=== PATIENT | female | born 1980 ===

== ENCOUNTER 2016-09-05 06:30 | Inpatient (IN) | payer OTHER ==
[2016-09-04 08:43] VITALS: BMI 43.2
[~2016-09-05 06:30] MED LIST: DEXAMETHASONE SOD PHOSPHATE 10 MG/ML 1 ML VIAL IV ONE; HEPARIN SODIUM,PORCINE 5,000 UNIT/ML 1 ML VIAL SQ ONE; HYDROmorphone 1 MG/ML 1 ML SYRINGE IVP PRN; MIDAZOLAM 2 MG/2 ML VIAL IV PRN; ONDANSETRON 4 MG/2 ML VIAL IVP ONE; SCOPOLAMINE 1.5MG/72HR PATCH TRANSDERM ONE
[2016-09-05] MEDS: LACTATED RINGERS 1,000 ML IV SCH (06:55)
[2016-09-05] MEDS ORDERED: LIDOCAINE 1% 20 ML VIAL (10MG/ML) FOR IV START INTRADERMA ONE (06:55)
[2016-09-05 07:25] LABS: Glucose,Whole Blood 88 mg/dL (75-99)
--- NOTE | 2016-09-05 07:45 | P.GSHP ---
History of Present Illness H&P Date: 09/05/16 Chief Complaint: GERD This is a 35-year-old female referred from Dr. Phipps.The patient has had long- standing problems with reflux esophagitis. The patient underwent recent EGD is found have evidence of esophagitis. Patient has been well informed on the procedure of laparoscopic Lucy fundoplication. The patient is aware the risk of the conversion to the open procedure, risk of injury to the stomach, liver and spleen. The patient is also a risk of recurrent GERD and dysphagia symptoms. The patient understands there is a postoperative diet of full liquids for 2 weeks after surgery. - Constitutional Constitutional: Reports as per HPI Past Medical History Past Medical History: GERD/Reflux Additional Past Medical History / Comment(s): HIATAL HERNIA, HYPOGLYCEMIA. History of Any Multi-Drug Resistant Organisms: None Reported Past Surgical History: Section Additional Past Surgical History / Comment(s): LIPOMA REMOVED LUQ (08/13/16) Past Anesthesia/Blood Transfusion Reactions: Postoperative Nausea & Vomiting ( PONV) Past Psychological History: Depression Additional Psychological History / Comment(s): Hx Depression Smoking Status: Current some day smoker Past Alcohol Use History: Occasional Additional Past Alcohol Use History / Comment(s): Smokes 2 cigs on some days, started in 2005. Past Drug Use History: None Reported - Past Family History Mother Family Medical History: No Reported History Medications and Allergies Home Medications Medication Instructions Recorded Confirmed Type Norgestimate-Ethinyl Estradiol 1 each PO DAILY 08/04/16 09/05/16 History [Mononessa 28 Tablet] Allergies Allergy/AdvReac Type Severity Reaction Status Date / Time No Known Allergies Allergy Verified 09/05/16 07:02 Surgical - Exam Vital Signs Temp Pulse Resp BP Pulse Ox 98.7 F 74 16 146/77 96 09/05/16 07:11 09/05/16 07:11 09/05/16 07:11 09/05/16 07:11 09/05/16 07:11 - General well developed, no distress - Eyes PERRL - ENT normal pinna, normal nares - Neck no masses - Respiratory normal expansion - Cardiovascular Rhythm: regular - Abdomen Abdomen: soft, non tender Assessment and Plan Plan: GERD. We'll perform laparoscopic Lucy fundoplication.
[2016-09-05] MEDS ORDERED: GLYCOPYRROLATE 0.2 MG/ML 2 ML VIAL ONE (07:46)
[2016-09-05] MEDS ORDERED: LIDOCAINE 1% INJ 10MG/ML (20 ML MDV) ONE (07:46)
[2016-09-05] MEDS ORDERED: SUCCINYLCHOLINE CHLORIDE 100 MG/5 ML SYR IV ONE (07:46)
[2016-09-05] MEDS ORDERED: VECURONIUM 10 MG VIAL IV ONE (07:46)
[2016-09-05] MEDS ORDERED: HYDROmorphone (PF) 1 MG/ML ONE (07:46)
[2016-09-05] MEDS ORDERED: LABETALOL 5 MG/ML VIAL MDV ONE (07:46)
[2016-09-05] MEDS ORDERED: KETOROLAC 30 MG/ML 1 ML VIAL ONE (07:46)
[2016-09-05] MEDS ORDERED: MIDAZOLAM 2 MG/2 ML VIAL ONE (07:46)
[2016-09-05] MEDS ORDERED: PROPOFOL 10 MG/ML 20 ML VIAL IV ONE (07:46)
[2016-09-05] MEDS: ceFAZolin 3 GM in SODIUM CHLORIDE 0.9% 100 ML IVPB ONE ×2 (07:46→10:55)
[2016-09-05] MEDS ORDERED: NEOSTIGMINE 1 MG/ML 10 ML VIAL ONE (07:46)
[2016-09-05] MEDS ORDERED: ceFAZolin 1,000 MG VIAL ONE (07:46)
[2016-09-05] MEDS ORDERED: fentaNYL (PF) 50 MCG/ML 2 ML AMP ONE (07:46)
[2016-09-05] MEDS ORDERED: SODIUM CHLORIDE 0.9% 100 ML BAG ONE (07:46)
[2016-09-05] MEDS ORDERED: BUPIVACAIN-EPI 0.25%-1:200,000 30 ML VIAL SQ ONE (08:16)
[2016-09-05] MEDS: LACTATED RINGERS 1,000 ML IV ONE ×2 (08:47→19:14)
--- NOTE | 2016-09-05 08:52 | P.OP ---
Date of Procedure: 09/05/16 Preoperative Diagnosis: GERD Postoperative Diagnosis: GERD Procedure(s) Performed: Laparoscopic Lucy fundal plication Anesthesia: NATY Surgeon: Trevor Fields Estimated Blood Loss (ml): 5 Pathology: none sent Condition: stable Disposition: PACU Description of Procedure: he was placed on the operating table in the supine position. The patient received general anesthesia. And was placed in dorsal lithotomy position. The patient was prepped and draped in the usual sterile fashion. The skin incision sites were anesthetized with 1% local Xylocaine. The skin was incised in the left periumbilical area and then using a blade less 5 mm trocar under direct visualization panel cavity was entered. After adequate insufflation the laparoscope was then placed into the peritoneal cavity. Next a 5 mm trochars placed in the right epigastric position. Another 5 millimeter trocar the right lateral position. Another 5 millimeter trocar in the left lateral position a 5 mm trocar is placed in the left epigastric position. And then the initial 5 mm trocar was exchanged for a 10 mm trocar. The left lateral lobe liver was retracted. The hernia was seen. The crural defect was then dissected using the Harmonic scissors device. A 360 crural dissection was performed the esophagus stomach was reduced back into the peritoneal Cavity. The crural defect was then closed using 2-0 Ethibond suture. Next the fundus of the stomach was mobilized using the [place] scissors device. and then a 58-Citizen [place] bougie dilator was placed oropharynx passed into the esophagus and stomach the fundal plication wrap was then performed by grasping the fundus posteriorly and bringing it around the esophagus and stomach fundoplication was then performed using 2-0 Ethibond suture. Care was taken that the fundal location rested over top of the intra-abdominal esophagus. There was no injury seen to the stomach or esophagus. The dilator was then withdrawn. The abdomen was irrigated there is no bleeding seen. The trochars were then withdrawn and then skin incision sites were closed using 3-0 Monocryl suture Steri-Strips are applied. Patient thought procedure well and sent to recovery room in stable condition.
[2016-09-05] MEDS ORDERED: NALOXONE 0.4 MG/ML 1 ML VIAL IV PRN (08:53)
[2016-09-05] MEDS ORDERED: LACTATED RINGERS 1,000 ML IV ONE (08:53)
[2016-09-05] MEDS ORDERED: METOCLOPRAMIDE 5 MG/ML 2 ML VIAL IVP PRN (08:53)
[2016-09-05] MEDS ORDERED: HYDROcodone/APAP 5-325MG 1 EACH TAB PO PRN (08:53)
[2016-09-05] MEDS ORDERED: HYDROmorphone 1 MG/ML 1 ML SYRINGE IVP PRN (08:53)
[2016-09-05] MEDS ORDERED: ONDANSETRON 4 MG/2 ML VIAL IVP PRN (08:53)
[2016-09-05] MEDS: KETOROLAC 30 MG/ML 1 ML VIAL IVP SCH ×3 (10:54→21:04)
[2016-09-05] MEDS ORDERED: NORGESTIMATE ETHINYL ESTRADIOL PO SCH (13:15)
--- NOTE | 2016-09-05 13:17 | P.CONS ---
History of Present Illness - Reason for Consult Consult date: 09/05/16 Medical management Requesting physician: Trevor Fields - Chief Complaint Status post Robert fundoplication - History of Present Illness This is a 35-year-old -[place] female, patient of Dr. Phipps. She has a history of GERD and hiatal hernia. Also recently had a lipoma removed from her left upper quadrant. Patient underwent a laparoscopic Robert fundoplication today for her GERD. She she tolerated surgery well. Postop she did have elevated blood pressures and was given 2 doses of labetolol. Blood pressure was in the 170s over 100s. Blood pressure is currently 162/48. Heart rate had been in the 50s. Patient reports no heat history of hypertension. She does report a mother and grandmother who had high blood pressure. Patient is sitting up in bed comfortably. Denies any pain. Denies any chest pain or shortness of breath. Denies any nausea or vomiting. Prior to surgery she had been having regular bowel movements and denies any difficulty urinating. Review of Systems Please refer to HPI otherwise unremarkable Past Medical History Past Medical History: GERD/Reflux Additional Past Medical History / Comment(s): HIATAL HERNIA, HYPOGLYCEMIA. History of Any Multi-Drug Resistant Organisms: None Reported Past Surgical History: Section Additional Past Surgical History / Comment(s): LIPOMA REMOVED LUQ (08/13/16) Past Anesthesia/Blood Transfusion Reactions: Postoperative Nausea & Vomiting ( PONV) Past Psychological History: Depression Additional Psychological History / Comment(s): Hx Depression Smoking Status: Current some day smoker Past Alcohol Use History: Occasional Additional Past Alcohol Use History / Comment(s): Smokes 2 cigs on some days, started in 2005. Past Drug Use History: None Reported - Past Family History Mother Family Medical History: No Reported History Medications and Allergies Home Medications Medication Instructions Recorded Confirmed Type Norgestimate-Ethinyl Estradiol 1 tab PO DAILY 08/04/16 09/05/16 History [Mononessa 28 Tablet] Allergies Allergy/AdvReac Type Severity Reaction Status Date / Time No Known Allergies Allergy Verified 09/05/16 07:02 Physical Exam Vitals: Vital Signs Temp Pulse Resp BP Pulse Ox 09/05/16 11:16 57 L 162/85 100 09/05/16 10:46 60 157/88 99 09/05/16 10:31 57 L 144/76 99 09/05/16 10:16 60 141/86 91 L 09/05/16 10:02 97.6 F 59 L 16 154/89 90 L 09/05/16 09:35 54 L 16 155/86 99 09/05/16 09:26 59 L 18 162/73 92 L 09/05/16 09:12 56 L 16 159/76 100 09/05/16 08:58 97.6 F 74 20 185/88 96 09/05/16 07:11 98.7 F 74 16 146/77 96 Intake and Output 09/04/16 09/05/16 09/05/16 22:59 06:59 14:59 Intake Total 100 1130 Output Total 402 Balance 100 728 Intake: IV 100 1100 Oral 30 Output: Urine 400 Estimated Blood Loss 2 Other: # Voids 1 Weight 128.82 kg Patient Weight 09/06/16 06:59 Weight 128.82 kg Head normocephalic Neck supple Lungs clear to auscultation bilaterally no wheezing or crackles Heart regular rate and rhythm S1-S2, no rub or gallop Abdomen is soft incision sites clean dry and intact Extremities no edema Neuro alert and orientated to 3 Assessment and Plan Plan: 1. GERD: Status post laparoscopic orbert fundoplication. Patient currently on a clear liquid diet. Pain controlled. 2. Accelerated hypertension postop. Patient did require labetalol 2. We'll monitor blood pressure closely. Patient reports no history of hypertension. 3. Nicotine dependence. Patient is working on quitting smoking. She is down to 2 cigarettes a day. We'll add nicotine patch. DVT prophylaxis subcu heparin Check CBC and CMP Thank you for this consultation. We will continue to follow along with you. Time with Patient: Greater than 30 (Greater than 50% of the total time spent in counseling and coordination of care.I performed an examination of the patient and discussed their management with the physician High School Tutor. I have reviewed the Physician High School Tutor's notes and agree with the documented findings and plan of care)
[2016-09-05] MEDS: NICOTINE 7MG/24HR PATCH TRANSDERM SCH (14:03)
[2016-09-05 14:32] LABS: Basophils % (A) 0 %; CH 30.8; CHCM 33.2; Eosinophils # (A) 0.1 k/uL (0-0.7); Eosinophils % (A) 1 %; HDW 2.32; HGB 12.7 gm/dL (11.4-16.0); Luc # (Auto) 0.03; Luc % (Auto) 0; Lymphocytes % (A) 12 %; MCH 29.7 pg (25.0-35.0); MCHC 31.8 g/dL (31.0-37.0); MCV 93.3 fL (80.0-100.0); Mean Platelet Volume 7.4; Monocytes # (A) 0.1 k/uL (0-1.0); Monocytes % (A) 1 %; Neutrophils # (A) 6.9 k/uL (1.3-7.7); Neutrophils % (A) 85 %; RBC 4.29 m/uL (3.80-5.40); RDW 13.5 % (11.5-15.5); WBC 8.1 k/uL (3.8-10.6); WBC (Perox) 8.57
[2016-09-05 14:44] LABS: ALT 42 U/L (9-52); AST 32 U/L (14-36); Alkaline Phosphatase 95 U/L (38-126); Anion Gap 9 mmol/L; Blood Urea Nitrogen 8 mg/dL (7-17); Calcium 9.1 mg/dL (8.4-10.2); Carbon Dioxide 25 mmol/L (22-30); Chloride 106 mmol/L (98-107); Glucose 154 mg/dL (74-99); Non-African American GFR(MDRD) >60 (>60 ml/min/1.73 sqM); Potassium 3.8 mmol/L (3.5-5.1); Sodium 140 mmol/L (137-145); Total Bilirubin 0.4 mg/dL (0.2-1.3); Total Protein 7.1 g/dL (6.3-8.2)
--- NOTE | 2016-09-05 15:32 | FL ---
EXAMINATION TYPE: FL UGI w esophagus DATE OF EXAM: 09/05/2016 3:07 PM LIMITED UGI-ESOPHAGRAM: CLINICAL HISTORY: History of epigastric pain, hiatal hernia, and reflux-like symptoms with Keegan fu ndoplication surgery earlier today TECHNIQUE: Limited esophagram is performed utilizing 50 oz of Omnipaque 350. A total of 1 minute 27 seconds of fluoroscopic time was utilized during procedure. FINDINGS: The patient swallowed contrast without difficulty or delay. Esophageal peristalsis and mo tility are within normal limits. There is some mild delay in flow of contrast along the diaphragmatic hiatus into the stomach, there is no evidence of contrast extravasation to suggest free leak. Along posterior margin of proximal stomach there is abnormal outpouching present could reflect small divert iculum, contained perforation felt much less likely. No persistent hiatal hernia is seen. Patient rem ains asymptomatic without increased symptoms of nausea or vomiting. IMPRESSION: No evidence of free leak or significant obstruction status post Keegan fundoplication jesus keira earlier today.
[2016-09-05] MEDS: HEPARIN SODIUM,PORCINE 5,000 UNIT/ML 1 ML VIAL SQ SCH (21:06)
[2016-09-06] MEDS: LACTATED RINGERS 1,000 ML IV SCH (02:16)
[2016-09-06] MEDS: KETOROLAC 30 MG/ML 1 ML VIAL IVP SCH ×2 (04:18→09:47)
[2016-09-06 06:53] LABS: Basophils % (A) 0 %; CH 30.9; CHCM 33.3; Eosinophils # (A) 0.3 k/uL (0-0.7); Eosinophils % (A) 3 %; HCT 35.8 % (34.0-46.0); HDW 2.33; HGB 11.5 gm/dL (11.4-16.0); Luc # (Auto) 0.15; Luc % (Auto) 2; Lymphocytes % (A) 40 %; MCH 29.9 pg (25.0-35.0); MCHC 32.1 g/dL (31.0-37.0); MCV 93.1 fL (80.0-100.0); Mean Platelet Volume 7.6; Monocytes # (A) 0.3 k/uL (0-1.0); Monocytes % (A) 4 %; Neutrophils # (A) 3.8 k/uL (1.3-7.7); Neutrophils % (A) 51 %; RBC 3.85 m/uL (3.80-5.40); RDW 13.6 % (11.5-15.5); WBC 7.6 k/uL (3.8-10.6); WBC (Perox) 8.01
[2016-09-06 07:08] LABS: ALT 38 U/L (9-52); AST 23 U/L (14-36); Alkaline Phosphatase 81 U/L (38-126); Anion Gap 6 mmol/L; Blood Urea Nitrogen 7 mg/dL (7-17); Calcium 8.8 mg/dL (8.4-10.2); Carbon Dioxide 25 mmol/L (22-30); Chloride 108 mmol/L (98-107); Glucose 96 mg/dL (74-99); Non-African American GFR(MDRD) >60 (>60 ml/min/1.73 sqM); Potassium 3.4 mmol/L (3.5-5.1); Sodium 139 mmol/L (137-145); Total Bilirubin 0.5 mg/dL (0.2-1.3); Total Protein 5.9 g/dL (6.3-8.2)
[2016-09-06 09:40] VITALS: BP 142/85; PULSE 92; RESP 20; TEMP 98.2
[2016-09-06] MEDS: HEPARIN SODIUM,PORCINE 5,000 UNIT/ML 1 ML VIAL SQ SCH (09:48)
[2016-09-06] MEDS: NICOTINE 7MG/24HR PATCH TRANSDERM SCH (09:48)
--- NOTE | 2016-09-06 12:09 | P.DS ---
Providers Date of admission: 09/05/16 06:30 Expected date of discharge: 09/06/16 Attending physician: Trevor Fields Consults: 09/05/16 08:58 Consult Physician Routine Consulting Provider: Angie Delvalle Consult Reason/Comments: Medical management Do you want consulting provider notified?: Yes Primary care physician: [facility] Course: Patient underwent elective laparoscopic Lucy fundoplication yesterday. She is doing well today. She is tolerating her liquid diet. Her upper GI was normal. Her white blood cell count is normal. She is afebrile. She would like home today. She is not taking anything for pain. Incisions are nicely. She'll be discharged today with outpatient follow-up with Dr. Fields in 1 week. Plan - Discharge Summary Discharge Medication List Norgestimate-Ethinyl Estradiol [Mononessa 28 Tablet] 1 tab PO DAILY 08/04/16 [ History] Follow up Appointment(s)/Referral(s): Trevor Fields MD [STAFF PHYSICIAN] - 1 Week
--- NOTE | 2016-09-06 13:22 | P.PN ---
Subjective Patient is doing well today. She continues to have elevated blood pressure throughout this hospital stay. She does not have any complaints. Objective - Vital Signs Vital signs: Vital Signs Temp 98.2 F 09/06/16 08:45 Pulse 92 09/06/16 08:45 Resp 20 09/06/16 08:45 BP 142/85 09/06/16 08:45 Pulse Ox 100 09/06/16 08:45 Intake & Output 09/05/16 09/06/16 09/06/16 18:59 06:59 18:59 Intake Total 1930 700 200 Output Total 702 Balance 1228 700 200 Weight 128.82 kg Intake: IV 1100 Oral 830 700 200 Output: Urine 700 Estimated Blood Loss 2 Other: Voiding Method Toilet # Voids 1 1 - Exam General: The patient is awake and alert, in no distress Eye: there is normal conjunctiva bilaterally. Neck: The neck is supple, there is no JVD. Cardiovascular: Normal S1-S2, no S3-S4, no murmurs. Respiratory: Lungs clear to auscultation bilaterally Gastrointestinal: Abdomen is soft, nontender Musculoskeletal: There is no pedal edema. Neurological:. Speech is normal. Skin: Skin is warm and dry - Labs CBC & Chem 7: 09/06/16 06:42 09/06/16 06:42 Labs: Abnormal Lab Results - Last 24 Hours (Table) 09/05/16 09/06/16 Range/Units 14:23 06:42 Potassium 3.4 L (3.5-5.1) mmol/L Chloride 108 H (98-107) mmol/L Glucose 154 H (74-99) mg/dL Total Protein 5.9 L (6.3-8.2) g/dL Albumin 3.2 L (3.5-5.0) g/dL Assessment and Plan Plan: 1. GERD: Status post laparoscopic robert fundoplication. Cleared for discharge home 2. Hypertension: Apparently new diagnosed with this patient. We will start her on low-dose amlodipine once daily. Follow up with primary care physician next week. 3. Nicotine dependence. Counseled to quit during this admission
== END 2016-09-06 13:48 | disposition home or self-care (01) | DRG 328 ==
LOC: 2ORWHC 06:30 → 6PED 08:55
PROVIDERS: ADMIT Surgery; ATTEND Surgery
PROC: 0DV44ZZ Restriction of Esophagogastric Junction, Percutaneous Endoscopic Approach (ICD-10-PCS; principal; 2016-09-05 07:40)
DX: K21.0 Gastro-esophageal reflux disease with esophagitis (principal); I10 Essential (primary) hypertension; K44.9 Diaphragmatic hernia without obstruction or gangrene; F32.9 Major depressive disorder, single episode, unspecified; F17.210 Nicotine dependence, cigarettes, uncomplicated; Z79.3 Long term (current) use of hormonal contraceptives; Z82.49 Family history of ischemic heart disease and other diseases of the circulatory system; Z71.6 Tobacco abuse counseling; Z86.59 Personal history of other mental and behavioral disorders; Z86.39 Personal history of other endocrine, nutritional and metabolic disease
CPT/HCPCS: 74240; 80053; 81025; 85025

== ENCOUNTER → 2017-09-28 | Outpatient (CLI) | payer OTHER ==
--- NOTE | 2017-09-28 11:26 | NM ---
EXAMINATION TYPE: NM hepatobiliary w CCK DATE OF EXAM: 09/28/2017 COMPARISON: NONE HISTORY: Gastroesophageal reflux disease, right upper quadrant pain TECHNIQUE: After the intravenous administration of 5.35 mCi Tc 99m Mebrofenin hepatobiliary scintigra phy is performed. Immediate images post injection. FINDINGS: There is satisfactory initial accumulation of tracer by the liver. The gallbladder is visualized wit hin 10 minutes. The small bowel activity is noted within 34 minutes. At one hour CCK was administer ed, patient was injected with 2.7 mcg of Kinevac, and gallbladder ejection fraction is calculated at 5 %. IMPRESSION: Abnormal low gallbladder ejection fraction
== END | disposition home or self-care (01) ==
LOC: RADNMMAIN 07:23
PROVIDERS: ATTEND Surgery
DX: K82.8 Other specified diseases of gallbladder (principal); K21.9 Gastro-esophageal reflux disease without esophagitis; R10.11 Right upper quadrant pain
CPT/HCPCS: 78227; A9537; J2805

== ENCOUNTER → 2017-10-01 | Outpatient (CLI) | payer OTHER ==
--- NOTE | 2017-10-01 07:57 | US ---
EXAMINATION TYPE: US gallbladder DATE OF EXAM: 10/01/2017 COMPARISON: nuclear med 2018 CLINICAL HISTORY: K21.9 GERD, R10.11 Right upper quad pain. EXAM MEASUREMENTS: Liver Length: 18.6 cm Gallbladder Wall: 0.2 cm CBD: 0.3 cm Right Kidney: 11.0 x 4.2 x 5.2 cm Pancreas: wnl Liver: Liver Length: < 16cm wnl, 17-18cm upper limits, >18cm enlarged, upper limits Gallbladder: gravity dependent gallstones Evidence for sonographic Suarez's sign: No CBD: wnl Right Kidney: upper pole anechoic cyst 4.4 x 3.5 x 3.3 cm IMPRESSION: 1. Cholelithiasis without sonographic evidence of acute cholecystitis. Biliary dyskinesia was identif ied on the recent hepatobiliary nuclear medicine examination dated 09/28/2017. 2. Mild hepatomegaly. 3. Right upper pole 4.4 cm renal cyst.
== END | disposition home or self-care (01) ==
LOC: RADUSWWP 07:18
PROVIDERS: ATTEND Surgery
DX: K80.20 Calculus of gallbladder without cholecystitis without obstruction (principal); N28.1 Cyst of kidney, acquired; K21.9 Gastro-esophageal reflux disease without esophagitis; R16.0 Hepatomegaly, not elsewhere classified
CPT/HCPCS: 76705

== ENCOUNTER 2017-10-07 07:57 | Day surgery (SDC) | payer OTHER ==
[2017-10-01 16:18] VITALS: BMI 42.3
[~2017-10-07 07:57] MED LIST changes: -DEXAMETHASONE SOD PHOSPHATE 10 MG/ML 1 ML VIAL IV ONE; -HEPARIN SODIUM,PORCINE 5,000 UNIT/ML 1 ML VIAL SQ ONE; -HYDROmorphone 1 MG/ML 1 ML SYRINGE IVP PRN; +LACTATED RINGERS 1,000 ML IV SCH; +LIDOCAINE 1% 20 ML VIAL (10MG/ML) FOR IV START INTRADERMA PRN; -MIDAZOLAM 2 MG/2 ML VIAL IV PRN; -ONDANSETRON 4 MG/2 ML VIAL IVP ONE; -SCOPOLAMINE 1.5MG/72HR PATCH TRANSDERM ONE
[2017-10-07 08:27] VITALS: TEMP 97.5
[2017-10-07] MEDS ORDERED: GLYCOPYRROLATE 0.2 MG/ML 2 ML VIAL ONE (08:56)
[2017-10-07] MEDS ORDERED: LIDOCAINE 1% INJ 10MG/ML (20 ML MDV) ONE (08:56)
[2017-10-07] MEDS ORDERED: fentaNYL (PF) 50 MCG/ML 2 ML AMP ONE (08:56)
[2017-10-07] MEDS ORDERED: PROPOFOL 10 MG/ML 20 ML VIAL IV ONE (08:56)
--- NOTE | 2017-10-07 09:04 | P.GSHP ---
History of Present Illness H&P Date: 10/07/17 Chief Complaint: Right upper quadrant, epigastric pain This is a 37-year-old female referred from Dr. Uriel Singer. Patient presents today for EGD. Stay complaints of epigastric and right upper quadrant pain. The patient had a recent ultrasound HIDA scan which showed evidence of cholelithiasis and biliary dysfunction. She will stay for EGD for evaluation possible gastritis Past Medical History Past Medical History: GERD/Reflux Additional Past Medical History / Comment(s): HIATAL HERNIA, HYPOGLYCEMIA, currently has strep throat-getting antibiotic today, was having epigastric pain History of Any Multi-Drug Resistant Organisms: None Reported Past Surgical History: Section Additional Past Surgical History / Comment(s): LIPOMA REMOVED LUQ (08/13/16), robert fundoplasty Past Anesthesia/Blood Transfusion Reactions: No Reported Reaction Past Psychological History: Depression Additional Psychological History / Comment(s): Hx Depression Smoking Status: Current some day smoker Past Alcohol Use History: Occasional Additional Past Alcohol Use History / Comment(s): Smokes 2 cigs on some days, started in 2005. Past Drug Use History: None Reported - Past Family History Mother Family Medical History: No Reported History Medications and Allergies Home Medications Medication Instructions Recorded Confirmed Type Norgestimate-Ethinyl Estradiol 1 tab PO DAILY 08/04/16 10/01/17 History [Mononessa 28 Tablet] Antibiotic For Strep Throat 1 tab PO DIRECTED 10/01/17 History Allergies Allergy/AdvReac Type Severity Reaction Status Date / Time No Known Allergies Allergy Verified 10/01/17 15:02 Surgical - Exam Vital Signs Temp Pulse Resp BP Pulse Ox 97.5 F L 59 L 20 143/82 96 10/07/17 08:26 10/07/17 08:26 10/07/17 08:26 10/07/17 08:26 10/07/17 08:26 - General well developed - Eyes PERRL - ENT normal pinna - Neck no masses - Respiratory normal expansion - Cardiovascular Rhythm: regular - Abdomen Right upper quadrant. Pain Abdomen: soft Assessment and Plan Plan: Right upper quadrant and epigastric pain. We'll perform EGD.
--- NOTE | 2017-10-07 09:09 | P.OP ---
Date of Procedure: 10/07/17 Preoperative Diagnosis: GERD, right upper quadrant pain Postoperative Diagnosis: Antral gastritis Esophagitis Procedure(s) Performed: EGD Anesthesia: MAC Surgeon: Trevor Fields Pathology: other (Antrum, esophagus) Condition: stable Disposition: PACU Description of Procedure: The patient's placed on the endoscopy table in the lateral position. She received IV sedation. The gastroscope was placed oropharynx and passed into the esophagus and stomach. The scope was then placed through the pylorus. The first and second portion of the duodenum appeared normal. Scope was then brought back the antrum this. Mildly inflamed. A biopsies performed. The scope was unretroflexed. There was no significant hiatal hernia. The patient a previous fundoplication. The fundoplication appeared to be slightly below the GE junction. The distal esophagus appeared inflamed. Several biopsies performed. The proximal esophagus appeared normal. Scope withdrawn for patient.
[2017-10-07 09:12] VITALS: RESP 16
[2017-10-07 09:48] VITALS: BP 167/94; PULSE 61
== END 2017-10-07 09:54 | disposition home or self-care (01) ==
LOC: ORWHC2ENDO 07:57
PROVIDERS: ATTEND Surgery
DX: K29.50 Unspecified chronic gastritis without bleeding (principal); K21.0 Gastro-esophageal reflux disease with esophagitis; F17.210 Nicotine dependence, cigarettes, uncomplicated; Z86.73 Personal history of transient ischemic attack (TIA), and cerebral infarction without residual deficits; Z79.3 Long term (current) use of hormonal contraceptives
CPT/HCPCS: 81025; 88305; 43239; J2001; J3010; J2704

== ENCOUNTER 2017-12-23 09:55 | Day surgery (SDC) | payer OTHER ==
[2017-12-18 11:15] VITALS: BMI 42.5
[~2017-12-23 09:55] MED LIST changes: +DEXAMETHASONE SOD PHOSPHATE 10 MG/ML 1 ML VIAL IV ONE; +HEPARIN SODIUM,PORCINE 5,000 UNIT/ML 1 ML VIAL SQ ONE; +HYDROmorphone 0.5 MG/0.5 ML SYRINGE IVP PRN; -LIDOCAINE 1% 20 ML VIAL (10MG/ML) FOR IV START INTRADERMA PRN; +MIDAZOLAM 2 MG/2 ML VIAL IV PRN; +ONDANSETRON 4 MG/2 ML VIAL IVP ONE; +ONDANSETRON ODT 4 MG TAB PO ONE
[2017-12-23] MEDS ORDERED: LIDOCAINE 1% 20 ML VIAL (10MG/ML) FOR IV START INTRADERMA ONE (10:49)
--- NOTE | 2017-12-23 11:13 | P.GSHP ---
History of Present Illness H&P Date: 12/23/17 Chief Complaint: Right upper quadrant pain This is a 37-year-old female who presents today for laparoscopic cholestatic. Patient's had complaints of right upper quadrant pain. Her recent ultrasounds is evidence of cholelithiasis. Past Medical History Past Medical History: GERD/Reflux Additional Past Medical History / Comment(s): HIATAL HERNIA, HYPOGLYCEMIA. History of Any Multi-Drug Resistant Organisms: None Reported Past Surgical History: Section Additional Past Surgical History / Comment(s): LIPOMA REMOVED LUQ (08/13/16), robert fundiplication 09/16 Past Anesthesia/Blood Transfusion Reactions: No Reported Reaction Smoking Status: Current some day smoker - Past Family History Mother Family Medical History: No Reported History Medications and Allergies Home Medications Medication Instructions Recorded Confirmed Type Norgestimate-Ethinyl Estradiol 1 tab PO DAILY 08/04/16 12/23/17 History [Mononessa 28 Tablet] Omeprazole 40 mg PO DAILY #60 capsule. 10/07/17 12/23/17 Rx Allergies Allergy/AdvReac Type Severity Reaction Status Date / Time No Known Allergies Allergy Verified 12/23/17 10:31 Surgical - Exam Vital Signs Temp Pulse Resp BP 98.3 F 63 16 134/80 12/23/17 10:20 12/23/17 10:20 12/23/17 10:20 12/23/17 10:20 - General well developed, no distress - Eyes PERRL - ENT normal pinna - Neck no masses - Respiratory normal expansion - Cardiovascular Rhythm: regular - Abdomen Abdomen: soft, non tender Assessment and Plan Assessment: Cholelithiasis. We'll perform laparoscopic cholecystectomy.
[2017-12-23] MEDS ORDERED: GLYCOPYRROLATE 0.2 MG/ML 2 ML VIAL ONE (11:27)
[2017-12-23] MEDS ORDERED: ROCURONIUM BROMIDE 10 MG/ML 10 ML VIAL IV ONE (11:27)
[2017-12-23] MEDS ORDERED: LIDOCAINE 1% INJ 10MG/ML (20 ML MDV) ONE (11:27)
[2017-12-23] MEDS ORDERED: BUPIVACAINE (PF) 0.25% 30 ML VIAL SQ ONE (11:27)
[2017-12-23] MEDS ORDERED: MORPHINE SULFATE 10 MG/ML SYRINGE ONE (11:27)
[2017-12-23] MEDS ORDERED: NEOSTIGMINE 1 MG/ML 10 ML VIAL ONE (11:27)
[2017-12-23] MEDS ORDERED: KETOROLAC 30 MG/ML 1 ML VIAL ONE (11:27)
[2017-12-23] MEDS ORDERED: SUCCINYLCHOLINE CHLORIDE 100 MG/5 ML SYR IV ONE (11:27)
[2017-12-23] MEDS ORDERED: fentaNYL (PF) 50 MCG/ML 2 ML AMP ONE (11:27)
[2017-12-23] MEDS ORDERED: PROPOFOL 10 MG/ML 20 ML VIAL IV ONE (11:27)
[2017-12-23] MEDS ORDERED: MIDAZOLAM 2 MG/2 ML VIAL ONE (11:27)
[2017-12-23] MEDS ORDERED: LABETALOL 5 MG/ML VIAL MDV ONE (11:27)
--- NOTE | 2017-12-23 12:10 | P.OP ---
Date of Procedure: 12/23/17 Preoperative Diagnosis: Cholelithiasis Postoperative Diagnosis: Cholelithiasis Procedure(s) Performed: Laparoscopic cholecystectomy Anesthesia: NATY Surgeon: Trevor Fields Estimated Blood Loss (ml): 5 Pathology: other (Gallbladder) Condition: stable Disposition: PACU Description of Procedure: The patient was placed on the operating table. The patient received a general endotracheal tube anesthesia. The patients abdomen was prepped and draped in the usual sterile fashion. Through an infraumbilical stab incision, the fascia of the anterior abdominal wall was grasped with a pair of Kochers and then the Veress needle was placed in the peritoneal cavity. Position of the Veress needle was confirmed with positive drop test. The abdomen was then insufflated. After adequate insufflation, the 10 mm trocar was placed in the peritoneal cavity. Following this the laparoscope was placed in the peritoneal cavity. The patient was placed in the head-up, right side up position and then a 5 mm trocar was placed in the right lateral and right subcostal position under direct visualization. A 8 mm trocar was placed in the epigastric position. The gallbladder was grasped in the fundus and infundibulum. Traction on the gallbladder was placed in the lateral and the cephalad positions. The triangle of Calot was visualized.. The cystic duct was bluntly dissected until the union of the cystic duct and common bile duct was seen. The cystic duct was then divided and sealed with the Harmonic scissors. A PDS Endoloop was then placed throughout the cystic duct stump. The cystic artery divided and sealed with the Harmonic scissors. The gallbladder was then removed from the liver bed using Harmonic scissors. The gallbladder was then extracted through the epigastric port site. Operative field was checked for any bleeding spots and Harmonic scissors was used to coagulate the liver bed. The abdomen was irrigated. The trocars were removed. The skin was closed using interrupted 3-0 Vicryl suture. Dermabond dressing were applied. The patient tolerated the procedure well.
[2017-12-23 12:21] VITALS: TEMP 98
[2017-12-23] MEDS ORDERED: ENALAPRILAT 1.25 MG/ML 1 ML VIAL IV ONE (12:23)
[2017-12-23] MEDS: MORPHINE SULFATE 4 MG/ML SYRINGE IV PRN ×2 (12:41→12:51)
[2017-12-23 14:02] VITALS: RESP 16
[2017-12-23] MEDS ORDERED: HYDROcodone/APAP 7.5-325MG 1 EACH TAB PO ONE (14:07)
[2017-12-23 14:53] VITALS: BP 181/91; PULSE 65
== END 2017-12-23 15:10 | disposition home or self-care (01) ==
LOC: OR 09:55
PROVIDERS: ATTEND Surgery
DX: K80.10 Calculus of gallbladder with chronic cholecystitis without obstruction (principal); K21.9 Gastro-esophageal reflux disease without esophagitis; F17.210 Nicotine dependence, cigarettes, uncomplicated; Z79.3 Long term (current) use of hormonal contraceptives; Z79.899 Other long term (current) drug therapy; Z87.19 Personal history of other diseases of the digestive system
CPT/HCPCS: 47562; 81025; 88304; 84703; J2250; J2270 ×2; J1644; J1100; J2710; J0690; J2405; J2001; J3010; J1885; J0330; J2704

== ENCOUNTER 2018-12-20 08:23 | Emergency (ER) | payer OTHER ==
[2018-12-20] MEDS ORDERED: Rhogam IMMUNE GLOBULIN 1,500 UNIT/1 ML IM ONE (08:51)
--- NOTE | 2018-12-20 08:53 | ED ---
Female Urogenital HPI - General Chief complaint: Vaginal Bleeding Stated complaint: 9 wks /bleeding Time Seen by Provider: 12/20/18 08:37 Source: family, RN notes reviewed Mode of arrival: ambulatory Limitations: no limitations - History of Present Illness Initial comments: 38-year-old female presents emergency Department with chief complaint of mild abdominal cramping and bleeding early . Patient is A1. Patient states that she has not seen SPIRITUAL ADVISOR at this time she believes she is currently 9 weeks . Patient states the bleeding started this morning. Patient is Rh- and has received RhoGAM in the past but nothing recent. Patient denies any dysuria or hematuria no constipation or diarrhea. - Related Data Home Medications Medication Instructions Recorded Confirmed Norgestimate-Ethinyl Estradiol 1 tab PO DAILY 08/04/16 12/20/18 [Mononessa 28 Tablet] Cephalexin [Keflex] 500 mg PO Q12HR 12/20/18 12/20/18 Allergies Allergy/AdvReac Type Severity Reaction Status Date / Time No Known Allergies Allergy Verified 12/20/18 08:48 Review of Systems ROS Statement: Those systems with pertinent positive or pertinent negative responses have been documented in the HPI. ROS Other: All systems not noted in ROS Statement are negative. Past Medical History Past Medical History: GERD/Reflux Additional Past Medical History / Comment(s): HIATAL HERNIA, HYPOGLYCEMIA. History of Any Multi-Drug Resistant Organisms: None Reported Past Surgical History: Section, Cholecystectomy Additional Past Surgical History / Comment(s): LIPOMA REMOVED LUQ (08/13/16), robert fundiplication 09/16 Past Anesthesia/Blood Transfusion Reactions: No Reported Reaction Past Psychological History: Depression Smoking Status: Former smoker Past Alcohol Use History: Occasional Past Drug Use History: None Reported - Past Family History Mother Family Medical History: No Reported History General Exam Limitations: no limitations General appearance: alert, in no apparent distress Head exam: Present: atraumatic, normocephalic, normal inspection Respiratory exam: Present: normal lung sounds bilaterally. Absent: respiratory distress, wheezes, rales, rhonchi, stridor Cardiovascular Exam: Present: regular rate, normal rhythm, normal heart sounds. Absent: systolic murmur, diastolic murmur, rubs, gallop, clicks GI/Abdominal exam: Present: soft, normal bowel sounds. Absent: distended, tenderness, guarding, rebound, rigid Back exam: Absent: CVA tenderness (R), CVA tenderness (L) Skin exam: Present: warm, dry, intact, normal color. Absent: rash Course Vital Signs 12/20/18 08:26 Temperature 97.8 F Pulse Rate 65 Respiratory 18 Rate Blood Pressure 146/86 O2 Sat by Pulse 100 Oximetry Medical Decision Making - Medical Decision Making 30-year-old female presented for bleeding in early . Ultrasound shows 5 weeks and 4 days no heart rate this time though it's very early. Patient's hCG is 2134. Patient will follow-up for repeat hCG in 2 days. I did explain that concern for possible miscarriage. Patient will follow with SPIRITUAL ADVISOR. - Lab Data Result diagrams: 12/20/18 09:00 Lab Results 12/20/18 12/20/18 12/20/18 Range/Units 09:00 09:00 09:00 Sodium 138 (137-145) mmol/L Potassium 4.4 (3.5-5.1) mmol/L Chloride 105 (98-107) mmol/L Carbon Dioxide 26 (22-30) mmol/L Anion Gap 7 mmol/L BUN 9 (7-17) mg/dL Creatinine 0.51 L (0.52-1.04) mg/dL Est GFR (CKD-EPI)AfAm >90 (>60 ml/min/1.73 sqM) Est GFR (CKD-EPI)NonAf >90 (>60 ml/min/1.73 sqM) Glucose 91 (74-99) mg/dL Calcium 9.0 (8.4-10.2) mg/dL HCG, Quant 2134.8 mIU/mL Urine Color Yellow Urine Appearance Clear (Clear) Urine pH 7.0 (5.0-8.0) Ur Specific [place] 1.025 (1.001-1.035) Urine Protein Trace H (Negative) Urine Glucose (UA) Negative (Negative) Urine Ketones Negative (Negative) Urine Blood Moderate H (Negative) Urine Nitrite Negative (Negative) Urine Bilirubin Negative (Negative) Urine Urobilinogen <2.0 (<2.0) mg/dL Ur Leukocyte Esterase Negative (Negative) Urine RBC 3 (0-5) /hpf Urine WBC 1 (0-5) /hpf Ur Squamous Epith Cells 2 (0-4) /hpf Urine Mucus Rare H (None) /hpf Urine Sperm Rare (None) /hpf Blood Type A Negative Blood Type Recheck No Antibody Screen NEGATIVE Disposition Clinical Impression: Threatened miscarriage in early Disposition: HOME SELF-CARE Condition: Stable Instructions (If sedation given, give patient instructions): Threatened Miscarriage (ED) Additional Instructions: Please return to the Emergency Department if symptoms worsen or any other concerns. Is patient prescribed a controlled substance at d/c from ED?: No Referrals: Wandy Valiente MD [Primary Care Provider] - 1-2 days Time of Disposition: 11:25
[2018-12-20 09:35] LABS: Appearance,Urine Clear (Clear); Bilirubin,Urine Negative (Negative); Blood,Urine Moderate (Negative); Color,Urine Yellow; Glucose,Urine (UA) Negative (Negative); Ketones,Urine Negative (Negative); Leukocyte Esterase,Urine Negative (Negative); Mucus,Urine Rare /hpf; Nitrite,Urine Negative (Negative); Protein,Urine Trace (Negative); RBC,Urine 3 /hpf (0-5); Specific Gravity,Urine 1.025 (1.001-1.035); Sperm,Urine Rare /hpf; Squamous Epithelial Cell,Urine 2 /hpf (0-4); Urobilinogen,Urine <2.0 mg/dL (<2.0)
[2018-12-20 09:40] LABS: Anion Gap 7 mmol/L; Blood Urea Nitrogen 9 mg/dL (7-17); Carbon Dioxide 26 mmol/L (22-30); Chloride 105 mmol/L (98-107); Glucose 91 mg/dL (74-99); Potassium 4.4 mmol/L (3.5-5.1); Sodium 138 mmol/L (137-145)
[2018-12-20 09:57] LABS: HCG,Quantitative Serum 2134.8 mIU/mL
--- NOTE | 2018-12-20 10:22 | US ---
EXAMINATION TYPE: Transabdominal DATE OF EXAM: 12/20/2018 10:13 AM COMPARISON: NONE CLINICAL HISTORY: Pain. spotting today, patient was sexually active, no pain, A1, h/o EXAM PERFORMED: OBTA EXAM MEASUREMENTS: GESTATIONAL AGE / DATING Physician Established: Not yet established Dates by LMP: (9 weeks/4 days) EDC: 07/21/2019 Dates by First Scan: No previous this is first scan Dates by Current Scan for: (5 weeks/4 days) EDC: 08/18/2019 MATERNAL ANATOMY Uterus: 8.2 x 6.0 x 4.8cm Right Ovary: 2.8 x 1.9 x 1.7cm Left Ovary: 1.7 x 1.6 x 1.4cm Post CDS / Adnexa: wnl Presence of free fluid: no Presence of corpus luteal cyst: not seen Presence of subchorionic bleed: no GESTATION / SURVEY MSD: 1.4 (5 weeks/4 days) Yolk Sac (normal less than 6mm): not seen yet Date of LMP: 10/14/2018 Beta HcG (if available): 2134 IMPRESSION: 1. Single intrauterine gestational sac estimated at 5 weeks 4 days gestation based on the mean sac di ameter. Yolk sac is not identified. pole is not identified. Typically a pole is identifie d at the current hCG level. Early should be considered. Other etiologies are not excluded a t this time. No cardiac activity is evident. Correlation with serial beta-hCG and follow-up is recomm ended.
[2018-12-20 11:28] LABS: Basophils # (A) 0.1 k/uL (0-0.2); Basophils % (A) 1 %; Eosinophils # (A) 0.1 k/uL (0-0.7); Eosinophils % (A) 2 %; HCT 36.7 % (34.0-46.0); HGB 12.2 gm/dL (11.4-16.0); Lymphocytes # (A) 3.1 k/uL (1.0-4.8); Lymphocytes % (A) 47 %; MCH 30.6 pg (25.0-35.0); MCHC 33.4 g/dL (31.0-37.0); MCV 91.8 fL (80.0-100.0); Mean Platelet Volume 6.5; Monocytes # (A) 0.3 k/uL (0-1.0); Monocytes % (A) 4 %; Neutrophils # (A) 2.9 k/uL (1.3-7.7); Neutrophils % (A) 44 %; Platelet Count 349 k/uL (150-450); RDW 13.8 % (11.5-15.5); WBC 6.7 k/uL (3.8-10.6)
[2018-12-20 12:45] VITALS: BP 138/98; PULSE 60; RESP 16; TEMP 98.2
== END 2018-12-20 12:30 | disposition home or self-care (01) ==
LOC: EC 08:23
DX: O20.0 Threatened abortion (principal); O26.891 Other specified pregnancy related conditions, first trimester; R10.9 Unspecified abdominal pain; Z87.891 Personal history of nicotine dependence; Z3A.01 Less than 8 weeks gestation of pregnancy; Z79.3 Long term (current) use of hormonal contraceptives
CPT/HCPCS: 36415; 86900; 86901; 80048; 85025; 86850; 81001; 84702; 76801; 99284; 96372; J2791

== ENCOUNTER → 2018-12-25 | Outpatient (CLI) | payer OTHER | END | disposition home or self-care (01) | LOC: LABWHC1 10:08 | PROVIDERS: ATTEND Obstetrics & Gynecology | DX: O20.0 Threatened abortion (principal); Z3A.00 Weeks of gestation of pregnancy not specified | CPT/HCPCS: 36415; 84702 ==

== ENCOUNTER → 2019-01-12 | Outpatient (CLI) | payer OTHER ==
--- NOTE | 2019-01-13 07:13 | US ---
EXAMINATION TYPE: US thyroid st tissue head/neck DATE OF EXAM: 01/12/2019 COMPARISON: NONE CLINICAL HISTORY: E04.9. GLAND SIZE: Right Lobe: 4.6 x 1.4 x 1.3 cm Overall Parenchyma: homogenous Left Lobe: 4.2 x 1.1 x 1.3 cm Overall Parenchyma: homogeneous Isthmus Thickness: 0.3 cm NODULES RIGHT: # of nodules measured on right: 0 LEFT: # of nodules measured on left: 0 ISTHMUS: # of nodules measured in the isthmus: 0 Bilateral neck scanned, no evidence of lymphadenopathy. IMPRESSION: No evidence of thyroid cystic or solid nodule.
== END | disposition home or self-care (01) ==
LOC: RADUSWWP 16:18
PROVIDERS: ATTEND Family Medicine
DX: E04.9 Nontoxic goiter, unspecified (principal)
CPT/HCPCS: 76536

== ENCOUNTER → 2019-10-08 | Outpatient (CLI) | payer OTHER ==
--- NOTE | 2019-10-08 09:08 | MR ---
EXAMINATION TYPE: MR knee RT wo con DATE OF EXAM: 10/08/2019 8:45 AM COMPARISON: NONE HISTORY: Right knee pain, fell on rt knee TECHNIQUE: Multiplanar, multiecho imaging of the right knee is performed without IV contrast. FINDINGS: There is a small right knee joint effusion. There is grade I to II chondromalacia involving the lateral patellar facet. There is grade III to IV chondromalacia involving the weightbearing surface of the lateral femoral condyle this is most pronou nced posteriorly. I do not see evidence of a meniscal tear. Both the anterior and posterior cruciate ligaments are intact. The medial and lateral collateral ligament complexes are intact. The iliotibial band inserts normally upon Gerdy's tubercle. The popliteus muscle and tendon are unremarkable. The patellar and quadriceps tendons are intact. There is no significant swelling in the Hoffa fat spa ce. IMPRESSION: 1. SMALL JOINT EFFUSION. 2. CHONDROMALACIA DESCRIBED. 3. NO SIGNIFICANT LIGAMENTOUS OR MENISCAL INJURY.
== END | disposition home or self-care (01) ==
LOC: RADMRIMAIN 07:41
PROVIDERS: ATTEND Orthopaedic Surgery
DX: M22.41 Chondromalacia patellae, right knee (principal)

== ENCOUNTER 2022-06-02 19:56 | Emergency (ER) | payer OTHER ==
[2022-06-02 20:37] VITALS: BP 171/103; PULSE 69; RESP 16; TEMP 98.4
[2022-06-02] MEDS ORDERED: LIDOCAINE 1% INJ 10MG/ML (20 ML MDV) SQ STA (20:54)
--- NOTE | 2022-06-02 20:56 | ED ---
Wound/Laceration HPI - General Chief Complaint: Wound/Laceration Stated Complaint: Leg laceration Time Seen by Provider: 06/02/22 20:47 Source: patient, RN notes reviewed Mode of arrival: ambulatory Limitations: no limitations - History of Present Illness Initial Comments: This is a pleasant 41-year-old female presents emergency department with a laceration just above her right knee. Patient states she walked past a coffee table which is made of glass. Glass caused a laceration to her knee when she struck it. She is denying any significant pain. She denies any chance of foreign body as a glass was intact. Esses unknown. No other injuries. No headache, no fever or chills, no changes in vision or hearing, no sore throat or difficulty with speech, no neck pain, no chest pain or shortness of breath, no abdominal pain, no nausea or vomiting, no changes in urination or bowel movements, no numbness or tingling, no extremity pain, no skin rashes or lesions. Past medical, surgical, social, and family history reviewed. - Related Data Home Medications Medication Instructions Recorded Confirmed Norgestimate-Ethinyl Estradiol 1 tab PO DAILY 08/04/16 12/20/18 [Mononessa 28 Tablet] Cephalexin [Keflex] 500 mg PO Q12HR 12/20/18 12/20/18 Allergies Allergy/AdvReac Type Severity Reaction Status Date / Time No Known Allergies Allergy Verified 06/02/22 20:33 Review of Systems ROS Statement: Those systems with pertinent positive or pertinent negative responses have been documented in the HPI. ROS Other: All systems not noted in ROS Statement are negative. Past Medical History Past Medical History: GERD/Reflux Additional Past Medical History / Comment(s): HIATAL HERNIA, HYPOGLYCEMIA. History of Any Multi-Drug Resistant Organisms: None Reported Past Surgical History: Section, Cholecystectomy Additional Past Surgical History / Comment(s): LIPOMA REMOVED LUQ (08/13/16), robert fundiplication 09/16 Past Anesthesia/Blood Transfusion Reactions: No Reported Reaction Past Psychological History: Depression Smoking Status: Never smoker Past Alcohol Use History: Occasional Past Drug Use History: Marijuana - Past Family History Mother Family Medical History: No Reported History General Exam Limitations: no limitations General appearance: alert, in no apparent distress Head exam: Present: atraumatic, normocephalic, normal inspection Eye exam: Present: normal appearance, EOMI Neck exam: Present: normal inspection Respiratory exam: Present: normal lung sounds bilaterally. Absent: respiratory distress, wheezes, rales, rhonchi, stridor Cardiovascular Exam: Present: regular rate, normal rhythm, normal heart sounds. Absent: systolic murmur, diastolic murmur, rubs, gallop, clicks GI/Abdominal exam: Present: soft. Absent: tenderness Extremities exam: Present: full ROM, normal capillary refill. Absent: normal inspection (5 cm linear laceration noted just above the right knee anteriorly. No evidence of foreign body. Into the subcutaneous tissue. No active bleeding.), tenderness, pedal edema, joint swelling, calf tenderness Back exam: Present: normal inspection Neurological exam: Present: alert, oriented X3, CN II-XII intact Psychiatric exam: Present: normal affect, normal mood Skin exam: Present: warm, dry, normal color. Absent: rash, cyanosis, diaphoretic, erythema Course Vital Signs 06/02/22 20:33 Temperature 98.4 F Pulse Rate 69 Respiratory 16 Rate Blood Pressure 171/103 O2 Sat by Pulse 100 Oximetry Procedures - Laceration Laceration #1 Consent Obtained: verbal consent Indication: laceration Site: lower extremity (Anterior right distal thigh) Size (cm): 5 Description: linear Depth: simple, single layer Anesthetic Used: lidocaine 1% Anesthesia Technique: local infiltration Amount (mls): 4 Pre-repair: wound explored, irrigated extensively, deep structures intact, extensive debridement (Area debridement 1 x 2 cm, subcutaneous tissue, devitalized skin, sterile forceps and #15 blade scalpel) Type of Sutures: nylon Size of Sutures: 4-0 Number of Sutures: 8 Technique: simple, interrupted Patient Tolerated Procedure: well, no complications Medical Decision Making - Medical Decision Making Isolated laceration to the right knee area, anterior, no evidence of damage to underlying structures. Patient counseled on wound care. Counseled on signs and symptoms of infection. Tetanus was updated. Patient was told to return to the ER for any signs or symptoms worsen. Told to return immediately if any other problems arise. All questions answered. Treatment plan discussed. Patient in agreement Every effort has been made to ensure accuracy of this dictation. However, due to the limitations of electronic medical records and dictation devices, errors in charting still occur. Waiter/Waitress First Class, Dr. Sorto Disposition Clinical Impression: Laceration of right knee without complication Disposition: HOME SELF-CARE Condition: Good Instructions (If sedation given, give patient instructions): Laceration (ED) Additional Instructions: Suture removal in 10-12 days. Antibiotic ointment daily. Keep the wound clean and covered the entire time. Follow-up with your regular physician as directed. Return to the ER immediately if any symptoms worsen, new symptoms arise, or any other problems develop. Is patient prescribed a controlled substance at d/c from ED?: No Referrals: None,Stated [Primary Care Provider] - 06/04/22 (As needed for wound check. You can also return to the ER.) Time of Disposition: 21:53
[2022-06-02] MEDS ORDERED: BACITRACIN ZINC 500 UNIT/GM OINT 28.4 GM TUBE TOPICAL STA (21:51)
== END 2022-06-02 22:25 | disposition home or self-care (01) ==
LOC: EC 19:56
DX: S81.011A Laceration without foreign body, right knee, initial encounter (principal); W25.XXXA Contact with sharp glass, initial encounter; Y93.01 Activity, walking, marching and hiking
CPT/HCPCS: 99282; 12002; J2001

== ENCOUNTER → 2023-06-25 | Outpatient (CLI) | payer BC ==
--- NOTE | 2023-06-25 10:10 | MM ---
Reason for Exam: Screening (asymptomatic). Baseline mammogram. Patient History: Menarche at age 15. First Full-Term at age 33. Late child-bearing (after 30). Maternal aunt had breast cancer. Paternal aunt had breast cancer. Last menstrual period: 06/12/2023 Risk Values: Martha 5 year model risk: 0.5%. NCI Lifetime model risk: 7.4%. Prior Study Comparison: Patient's first Mammogram. No prior studies available for comparison. Tissue Density: There are scattered fibroglandular densities. Findings: Analyzed By CAD. There is no suspicious group of microcalcifications or new suspicious mass. Overall Assessment: Negative, BI-RAD 1 Management: Screening Mammogram of both breasts in [address] [facility] will attempt to contact patient to return for supplemental views and ultrasound if indicated. Patient should continue monthly self-breast exams. A clinical breast exam by your physician is recommended on an annual basis. This exam should not preclude additional follow-up of suspicious palpable abnormalities. Note on Martha scores and lifetime risk: 1. A Martha score greater than 3% is considered moderate risk. If this is the case, consider specialist referral to assess eligibility for a risk reducing agent. 2. If overall lifetime risk for the development of breast cancer is 20% or higher, the patient may qualify for future screening with alternating mammogram and breast MRI. Electronically signed and approved by: Carroll Tran DO
--- NOTE | 2023-06-26 11:29 | CA ---
Transthoracic Echo Report Name: Enzo Mendieta Age: 42 Gender: F : 1980 Exam Date: 06/25/2023 09:01 Exam Location: [place] [facility] Ht (in): 68 Wt (lb): 294 Ordering Physician: Wandy Valiente MD Attending/Referring Phys: Director Ambulatory Maryam Cruz RDCS Procedure CPT: Indications: Z12.31 screen; chest pain htn Cardiac Hx: Technical Quality: Fair Contrast 1: Total Dose (mL): Contrast 2: Total Dose (mL): MEASUREMENTS (Male / Female) Normal Values 2D ECHO LV Diastolic Diameter PLAX 4.6 cm 4.2 - 5.9 / 3.9 - 5.3 cm LV Systolic Diameter PLAX 3.2 cm IVS Diastolic Thickness 1.2 cm 0.6 - 1.0 / 0.6 - 0.9 cm LVPW Diastolic Thickness 1.5 cm 0.6 - 1.0 / 0.6 - 0.9 cm LV Relative Wall Thickness 0.6 RV Internal Dim ED PLAX 3.6 cm LA Volume 106.9 cm??? 18 - 58 / 22 - 52 cm??? LA Volume Index 41.2 cm???/m??? 16 - 28 cm???/m??? M-MODE Aortic Root Diameter MM 3.0 cm LA Systolic Diameter MM 4.0 cm LA Ao Ratio MM 1.3 AV Cusp Separation MM 2.4 cm DOPPLER AV Peak Velocity 121.5 cm/s AV Peak Gradient 5.9 mmHg AV Mean Velocity 86.0 cm/s AV Mean Gradient 3.3 mmHg AV Velocity Time Integral 25.8 cm LVOT Peak Velocity 89.9 cm/s LVOT Peak Gradient 3.2 mmHg LVOT Velocity Time Integral 22.6 cm MV Area PHT 3.2 cm??? Mitral E Point Velocity 93.1 cm/s Mitral A Point Velocity 87.1 cm/s Mitral E to A Ratio 1.1 MV Deceleration Time 234.8 ms MV E' Velocity 8.2 cm/s Mitral E to MV E' Ratio 11.4 TR Peak Velocity 156.0 cm/s TR Peak Gradient 9.7 mmHg Right Ventricular Systolic Press 14.7 mmHg FINDINGS Left Ventricle Mildly increased left ventricular wall thickness. Left ventricular cavity size normal. Normal left ventricular systolic function with no obvious regional wall motion abnormalities. Left ventricular ejection fraction is estimated at 55-60 %. Right Ventricle Mild right ventricular dilatation. Right ventricular systolic pressure within normal limits. Normal right ventricular function. Right Atrium Normal right atrial size. Left Atrium Mild left atrial dilatation. Interatrial septal aneurysm. Mitral Valve Structurally normal mitral valve. No mitral stenosis. Mild mitral regurgitation. Aortic Valve Trileaflet aortic valve. No aortic valve stenosis or regurgitation. Tricuspid Valve Structurally normal tricuspid valve. Mild tricuspid regurgitation. Pulmonic Valve Trace pulmonic regurgitation. Pericardium No pericardial effusion. Aorta Normal size aortic root and proximal ascending aorta. CONCLUSIONS Left ventricular ejection fraction is estimated at 55-60 %. No obvious regional wall motion abnormalities. Mildly increased left ventricular wall thickness. Mild left atrial dilatation. Interatrial septal aneurysm. Mild mitral regurgitation. No pericardial effusion. Previewed by: Dr Franc Ortiz (Electronically Signed) Final Date: 26 June 2023 11:28
== END | disposition home or self-care (01) ==
LOC: RADMAMWWP 07:53
PROVIDERS: ATTEND Family Medicine
DX: Z12.31 Encounter for screening mammogram for malignant neoplasm of breast (principal); I34.0 Nonrheumatic mitral (valve) insufficiency; I10 Essential (primary) hypertension; R07.9 Chest pain, unspecified; Z80.3 Family history of malignant neoplasm of breast
CPT/HCPCS: 77063; 77067; 93306

== ENCOUNTER 2024-12-06 17:41 | Emergency (ER) | payer BC ==
[2024-12-06] MEDS: ETODOLAC 400 MG TAB PO STA (18:30)
--- NOTE | 2024-12-06 18:35 | ED ---
General Adult HPI - General Chief complaint: Extremity Problem,Nontraumatic Stated complaint: R Leg Pain Time Seen by Provider: 12/06/24 18:00 Source: patient, RN notes reviewed, old records reviewed Mode of arrival: ambulatory Limitations: no limitations - History of Present Illness Initial comments: This is a 44-year-old female who presents to the emergency department complaining of pain in her right calf starting last night. Patient has not noted any swelling. Patient denies any difficulty breathing or chest pain. Patient denies any fever or chills. Patient states she has not had this before and she does not think she did anything different yesterday and does not remember. Patient denies any back pain. Patient denies any recent injury or trauma - Related Data Home Medications Medication Instructions Recorded Confirmed Norgestimate-Ethinyl Estradiol 1 tab PO DAILY 08/04/16 12/20/18 [Mononessa 28 Tablet] Cephalexin [Keflex] 500 mg PO Q12HR 12/20/18 12/20/18 Allergies Allergy/AdvReac Type Severity Reaction Status Date / Time No Known Allergies Allergy Verified 06/02/22 20:33 Review of Systems ROS Statement: Those systems with pertinent positive or pertinent negative responses have been documented in the HPI. ROS Other: All systems not noted in ROS Statement are negative. Past Medical History Past Medical History: GERD/Reflux Additional Past Medical History / Comment(s): HIATAL HERNIA History of Any Multi-Drug Resistant Organisms: None Reported Past Surgical History: Section, Cholecystectomy Additional Past Surgical History / Comment(s): LIPOMA REMOVED LUQ (08/13/16), robert fundiplication 09/16 Past Anesthesia/Blood Transfusion Reactions: No Reported Reaction Past Psychological History: Depression Smoking Status: Never smoker Past Alcohol Use History: Occasional Past Drug Use History: Marijuana - Past Family History Mother Family Medical History: No Reported History General Exam - General Exam Comments Initial Comments: GENERAL: Patient is well-developed and well-nourished. Patient is nontoxic and well- hydrated and is in mild distress. ENT: Neck is soft and supple. No significant lymphadenopathy is noted. Oropharynx is clear. Moist mucous membranes. Neck has full range of motion without eliciting any pain. EYES: The sclera were anicteric and conjunctiva were pink and moist. Extraocular movements were intact and pupils were equal round and reactive to light. Eyelids were unremarkable. SKIN: Skin is clear with no lesions or rashes and otherwise unremarkable. NEUROLOGIC: Patient is alert and oriented x3. Cranial nerves II through XII are grossly intact. Motor and sensory are also intact. Normal speech, volume and content. Symmetrical smile. MUSCULOSKELETAL: Normal extremities with adequate strength and full range of motion. No lower ex tremity swelling or edema. Right calf is tender to palpation LYMPHATICS: No significant lymphadenopathy is noted PSYCHIATRIC: Normal psychiatric evaluation. Limitations: no limitations Course Vital Signs 12/06/24 17:49 Temperature 97.8 F Pulse Rate 61 Respiratory 16 Rate Blood Pressure 205/100 O2 Sat by Pulse 100 Oximetry Medical Decision Making - Medical Decision Making Was pt. sent in by a medical professional or institution (, DORIS, STORE ADMINISTRATIVE ASSISTANT, urgent care, hospital, or long-term...) When possible be specific @ -No Did you speak to anyone other than the patient for history (EMS, parent, family, police, friend...)? What history was obtained from this source @ -No Did you review nursing and triage notes (agree or disagree)? Why? @ -I reviewed and agree with nursing and triage notes Were old charts reviewed (outside hosp., previous admission, EMS record, old EKG, old radiological studies, urgent care reports/EKG's, long-term records)? Report findings @ -No old charts were reviewed Differential Diagnosis? @ -Calf strain, Achilles tendon rupture, DVT, EKG interpreted by me (3pts min.). @ -As above X-rays interpreted by me (1pt min.). @ -None done CT interpreted by me (1pt min.). @ -None done U/S interpreted by me (1pt. min.). @ -Ultrasound showed no acute abnormality What testing was considered but not performed or refused? (CT, X-rays, U/S, labs)? Why? @ -None What meds were considered but not given or refused? Why? @ -None Did you discuss the management of the patient with other professionals (professionals i.e. DORIS Kuo, STORE ADMINISTRATIVE ASSISTANT, lab, RT, psych nurse, social work faculty member, wood milling machine operator, teacher, toxics program officer, shoe parts caser)? Give summary @ -No Was smoking cessation discussed for >3mins.? @ -No Was critical care preformed (if so, how long)? @ -No Were there social determinants of health that impacted care today? How? (Homelessness, low income, unemployed, alcoholism, drug addiction, transportation, low edu. Level, literacy, decrease access to med. care, intermediate, rehab)? @ -No Was there de-escalation of care discussed even if they declined (Discuss DNR or withdrawal of care, Hospice)? DNR status @ -No What co-morbidities impacted this encounter? (DM, HTN, Smoking, COPD, CAD, Cancer, CVA, ARF, Chemo, Hep., AIDS, mental health diagnosis, sleep apnea, morbid obesity)? @ -None Was patient admitted / discharged? Hospital course, mention meds given and route, prescriptions, significant lab abnormalities, going to OR and other perti nent info. @ -The patient's ultrasound showed no DVT Undiagnosed new problem with uncertain prognosis? @ -No Drug Therapy requiring intensive monitoring for toxicity (Heparin, Nitro, Insulin, Cardizem)? @ -No Were any procedures done? @ -No Diagnosis/symptom? @ -Calf strain Acute, or Chronic, or Acute on Chronic? @ -Acute Uncomplicated (without systemic symptoms) or Complicated (systemic symptoms)? @ -Uncomplicated Side effects of treatment? @ -No Exacerbation, Progression, or Severe Exacerbation? @ -No Poses a threat to life or bodily function? How? (Chest pain, [place], [place], pneumonia, PE, COPD, DKA, ARF, appy, cholecystitis, CVA, Diverticulitis, Homicidal, Suicidal, threat to staff... and all critical care pts) @ -No Disposition Clinical Impression: Strain of calf muscle Disposition: HOME SELF-CARE Condition: Good Instructions (If sedation given, give patient instructions): Muscle Strain (ED) Additional Instructions: Patient should take an anti-inflammatory such as Motrin or Aleve for pain Is patient prescribed a controlled substance at d/c from ED?: No Referrals: Wandy Valiente MD [Primary Care Provider] - 1-2 days Time of Disposition: 20:05
--- NOTE | 2024-12-06 19:53 | US ---
EXAMINATION TYPE: US venous doppler duplex LE RT DATE OF EXAM: 12/06/2024 7:36 PM COMPARISON: NONE CLINICAL INDICATION: Female, 44 years old with history of calf pain; patient states calf pain for a f ew days. no swelling, redness, or warmth. no hx dvt. not on thinners, Pain TECHNIQUE: The lower extremity deep venous system is examined utilizing real time linear array sonog saul with graded compression, color doppler sonography, and spectral doppler. SIDE PERFORMED: Right FINDINGS: VESSELS IMAGED: Common Femoral Vein Deep Femoral Vein Greater Saphenous Vein * Femoral Vein Popliteal Vein Small Saphenous Vein * Proximal Calf Veins (* superficial vessels) Right Leg: Appears negative for dvt, Color Doppler imaging shows patency of the vessels. Spectral wa veforms are within normal limits. Patients area of concern within the calf also evaluated, no sonogra phic abnormalities seen at this time. IMPRESSION: No evidence of deep vein thrombosis of the right lower extremity. [facility], , 12/06/2024 7:51 PM
[2024-12-06 20:21] VITALS: BP 192/118; PULSE 89; RESP 18; TEMP 97.9
== END 2024-12-06 20:21 | disposition home or self-care (01) ==
LOC: EC 17:41
DX: S86.911A Strain of unspecified muscle(s) and tendon(s) at lower leg level, right leg, initial encounter (principal); X58.XXXA Exposure to other specified factors, initial encounter
CPT/HCPCS: 99283

== ENCOUNTER 2024-12-09 11:55 | Observation (INO) | payer BC ==
--- NOTE | 2024-12-09 13:16 | ED ---
SOB HPI - General Chief Complaint: Shortness of Breath Stated Complaint: SOB Time Seen by Provider: 12/09/24 12:36 Source: patient, RN notes reviewed Mode of arrival: ambulatory Limitations: no limitations - History of Present Illness Initial Comments: This is a 44-year-old female who presents to the emergency department for shortness of breath. Patient states that it has been going on for several weeks at this point. She followed up with her primary care provider and had a CTA of the chest done earlier today. She received a call saying that it was positive for a pulmonary embolus and she was advised to come here for further evaluation and management. She has been having some leg pain, however states that her ultrasound was negative for a DVT. Denies any history of blood clots. She does report some chest pain in association with the shortness of breath. Her PCP was also concerned as she has had heavy vaginal bleeding since 11/19. She had an outpatient ultrasound at [facility] done yesterday but does not yet have those results. However, states that today the bleeding has been cost control analyst and she has not even gone through one pad yet. MD Complaint: shortness of breath, chest pain - Related Data Home Medications Medication Instructions Recorded Confirmed Atorvastatin [Lipitor] 10 mg PO DIRECTED 12/09/24 12/09/24 Semaglutide [Wegovy] 0.25 mg SQ DIRECTED 12/09/24 12/09/24 amLODIPine 10 mg PO DAILY 12/09/24 12/09/24 hydroCHLOROthiazide [Hydrodiuril] 25 mg PO DAILY 12/09/24 12/09/24 Allergies Allergy/AdvReac Type Severity Reaction Status Date / Time No Known Allergies Allergy Verified 12/09/24 14:18 Review of Systems ROS Statement: Those systems with pertinent positive or pertinent negative responses have been documented in the HPI. ROS Other: All systems not noted in ROS Statement are negative. Past Medical History Past Medical History: GERD/Reflux Additional Past Medical History / Comment(s): HIATAL HERNIA History of Any Multi-Drug Resistant Organisms: None Reported Past Surgical History: Section, Cholecystectomy Additional Past Surgical History / Comment(s): LIPOMA REMOVED LUQ (08/13/16), robert fundiplication 09/16 Past Anesthesia/Blood Transfusion Reactions: No Reported Reaction Past Psychological History: Depression Smoking Status: Never smoker Past Alcohol Use History: Occasional Past Drug Use History: Marijuana - Past Family History Mother Family Medical History: No Reported History General Exam Limitations: no limitations General appearance: alert, in no apparent distress Head exam: Present: atraumatic, normocephalic, normal inspection Respiratory exam: Present: normal lung sounds bilaterally. Absent: respiratory distress, wheezes, rales, rhonchi, stridor Cardiovascular Exam: Present: regular rate, normal rhythm Neurological exam: Present: alert, oriented X3, CN II-XII intact Psychiatric exam: Present: normal affect, normal mood Skin exam: Present: warm, dry, intact, normal color. Absent: rash Course Vital Signs 12/09/24 12/09/24 12/09/24 12:18 14:51 15:56 Temperature 98.5 F Pulse Rate 91 71 70 Respiratory 17 18 18 Rate Blood Pressure 167/107 176/119 166/103 O2 Sat by Pulse 97 100 100 Oximetry 12/09/24 16:28 Temperature Pulse Rate 82 Respiratory 18 Rate Blood Pressure 158/94 O2 Sat by Pulse 100 Oximetry Medical Decision Making - Medical Decision Making This is a 44-year-old female who presents to the emergency department for shortness of breath. Was pt. sent in by a medical professional or institution? @ -Her PCP Did you speak to anyone other than the patient for history? @ -No Did you review nursing and triage notes? @ -Yes, and I agree, it is accurate with regards to the patient's symptoms. Were old charts reviewed? @ -CTA of the chest from earlier today demonstrating filling defects in the right pulmonary arterial vasculature compatible with acute pulmonary emboli. Duplex ultrasound of the bilateral lower extremities is negative for DVT. Pelvic ultrasound from 12/07/24 revealing a heterogeneous fibroid uterus. Differential Diagnosis? @ -Differential Dyspnea: Coronary syndrome, arrhythmia, tamponade, asthma, COPD, pulmonary embolism, pneumonia, pneumothorax, pulmonary effusion, anaphylaxis, diabetic ketoacidosis, flailed chest, pulmonary contusion, diaphragmatic rupture, anemia, neuromuscular, this is not meant to be an all-inclusive list. EKG interpreted by me (3pts min.)? @ -EKG interpreted by me demonstrating the following: Sinus rhythm. Ventricular rate 62 bpm, MT interval 149 ms, QRS duration 89 ms, QTc 414 ms. X-rays interpreted by me (1pt min.)? @ -Not obtained CT interpreted by me (1pt min.)? @ -Not obtained, done prior to arrival U/S interpreted by me (1pt. min.)? @ -Not obtained, done prior to arrival What testing was considered but not performed? (CT, X-rays, U/S, labs)? Why? @ -None What meds were considered but not given? Why? @ -None Did you discuss the management of the patient with other professionals? @ -Yes, Dr. Al, who accepts the patient for admission. Did you reconcile home meds? @ -Yes Was smoking cessation discussed for >3mins.? @ -No Was critical care preformed (if so, how long)? @ -No Were there social determinants of health that impacted care today? How? (Homelessness, low income, unemployed, alcoholism, drug addiction, transpor tation, low edu. Level, literacy, decrease access to med. care, long term, rehab)? @ -No Was there de-escalation of care discussed even if they declined? (Discuss DNR or withdrawal of care, Hospice)? @ -No What co-morbidities impacted this encounter? (DM, HTN, Smoking, COPD, CAD, Cancer, CVA, Hep., AIDS, mental health diagnosis, sleep apnea, morbid obesity)? @ -None Was patient admitted / discharged? @ -Admitted. Patient sent in due to an outpatient CTA of the chest demonstrating acute pulmonary emboli. Duplex ultrasound from the same day obtained as well, revealing no evidence of a DVT. We did get the results of her pelvic ultrasound from [facility] sent over. She was found to have a heterogeneous fibroid uterus and a small amount of pelvic free fluid. Lab work unremarkable. Troponin negative. No note was made of right heart strain on the CTA. Patient did need to be heparinized for the pulmonary embolus. She was not having any significant vaginal bleeding at that point, as she advised that it had started to improve. High intensity heparin protocol initiated. Patient admitted to medicine for pulmonary embolus. Echocardiogram ordered. Cardiology and PROPERTY CONDITION ASSESSOR consulted per the request of the admitting team. Case discussed with ED attending Dr. Perry. Undiagnosed new problem with uncertain prognosis? @ -None Drug Therapy requiring intensive monitoring for toxicity (Heparin, Nitro, Insulin, Cardizem)? @ -Heparin Were any procedures done? @ -None Diagnosis/symptom? @ -Pulmonary embolus Acute, or Chronic, or Acute on Chronic? @ -Acute Uncomplicated (without systemic symptoms) or Complicated (systemic symptoms)? @ -Complicated Side effects of treatment? @ -None Exacerbation, Progression, or Severe Exacerbation] @ -Not applicable Poses a threat to life or bodily function? @ -Yes, can lead to - Lab Data Result diagrams: 12/09/24 13:05 12/09/24 13:05 Lab Results 12/09/24 12/09/24 12/09/24 Range/Units 13:05 13:05 13:05 WBC 8.48 (4.50-10.00) 10*3/uL RBC 3.58 L (4.10-5.20) 10*6/uL Hgb 10.5 L (12.0-15.0) g/dL Hct 31.4 L (37.2-46.3) % MCV 87.7 (80.0-97.0) fL MCH 29.3 (27.0-32.0) pg MCHC 33.4 (32.0-37.0) g/dL Plt Count 373 (140-440) 10*3/uL MPV 8.8 L (9.5-12.2) fL Immature Gran % (Auto) 0.2 % Neutrophils % 50.5 % Lymphocytes % 39.7 % Monocytes % 6.1 % Eosinophils % 2.6 % Basophils % 0.9 % Immature Gran # 0.02 (0.00-0.04) 10*3/uL Neutrophils # 4.27 (1.80-7.70) 10*3/uL Lymphocytes # 3.37 (0.90-5.00) 10*3/uL Monocytes # 0.52 (0.20-1.00) 10*3/uL Eosinophils # 0.22 (0.04-0.35) 10*3/uL Basophils # 0.08 (0.00-0.10) 10*3/uL PT 10.2 (10.0-12.5) sec INR 0.9 (<1.2) APTT 22.4 (22.0-30.0) sec Sodium 136 L (137-145) mmol/L Potassium 3.9 (3.5-5.1) mmol/L Chloride 103 (98-107) mmol/L Carbon Dioxide 23 (22-30) mmol/L Anion Gap 10 mmol/L BUN 7 (7-17) mg/dL Creatinine 0.61 (0.52-1.04) mg/dL Est GFR (CKD-EPI)AfAm >90 (>60 ml/min/1.73 sqM) Est GFR (CKD-EPI)NonAf >90 (>60 ml/min/1.73 sqM) Glucose 94 (74-99) mg/dL Calcium 9.5 (8.4-10.2) mg/dL Total Bilirubin 0.4 (0.2-1.3) mg/dL AST 17 (14-36) U/L ALT 13 (4-34) U/L Alkaline Phosphatase 84 (38-126) U/L Troponin I (0.000-0.034) ng/mL Total Protein 7.3 (6.3-8.2) g/dL Albumin 4.0 (3.5-5.0) g/dL HCG, Qual 12/09/24 12/09/24 Range/Units 13:05 13:55 WBC (4.50-10.00) 10*3/uL RBC (4.10-5.20) 10*6/uL Hgb (12.0-15.0) g/dL Hct (37.2-46.3) % MCV (80.0-97.0) fL MCH (27.0-32.0) pg MCHC (32.0-37.0) g/dL Plt Count (140-440) 10*3/uL MPV (9.5-12.2) fL Immature Gran % (Auto) % Neutrophils % % Lymphocytes % % Monocytes % % Eosinophils % % Basophils % % Immature Gran # (0.00-0.04) 10*3/uL Neutrophils # (1.80-7.70) 10*3/uL Lymphocytes # (0.90-5.00) 10*3/uL Monocytes # (0.20-1.00) 10*3/uL Eosinophils # (0.04-0.35) 10*3/uL Basophils # (0.00-0.10) 10*3/uL PT (10.0-12.5) sec INR (<1.2) APTT (22.0-30.0) sec Sodium (137-145) mmol/L Potassium (3.5-5.1) mmol/L Chloride (98-107) mmol/L Carbon Dioxide (22-30) mmol/L Anion Gap mmol/L BUN (7-17) mg/dL Creatinine (0.52-1.04) mg/dL Est GFR (CKD-EPI)AfAm (>60 ml/min/1.73 sqM) Est GFR (CKD-EPI)NonAf (>60 ml/min/1.73 sqM) Glucose (74-99) mg/dL Calcium (8.4-10.2) mg/dL Total Bilirubin (0.2-1.3) mg/dL AST (14-36) U/L ALT (4-34) U/L Alkaline Phosphatase (38-126) U/L Troponin I <0.012 (0.000-0.034) ng/mL Total Protein (6.3-8.2) g/dL Albumin (3.5-5.0) g/dL HCG, Qual Not Detected - Radiology Data Radiology results: report reviewed, image reviewed Disposition Clinical Impression: Acute pulmonary embolism Disposition: ADMITTED IP TO THIS HOSP
[2024-12-09 13:19] LABS: Basophils # (A) 0.08 10*3/uL (0.00-0.10); Basophils % (A) 0.9 %; Eosinophils # (A) 0.22 10*3/uL (0.04-0.35); Eosinophils % (A) 2.6 %; HCT 31.4 % (37.2-46.3); HGB 10.5 g/dL (12.0-15.0); Lymphocytes # (A) 3.37 10*3/uL (0.90-5.00); Lymphocytes % (A) 39.7 %; MCH 29.3 pg (27.0-32.0); MCHC 33.4 g/dL (32.0-37.0); MCV 87.7 fL (80.0-97.0); Mean Platelet Volume 8.8 fL (9.5-12.2); Monocytes # (A) 0.52 10*3/uL (0.20-1.00); Monocytes % (A) 6.1 %; Neutrophils # (A) 4.27 10*3/uL (1.80-7.70); Neutrophils % (A) 50.5 %; Platelet Count 373 10*3/uL (140-440); RBC 3.58 10*6/uL (4.10-5.20); RDW 14.4 % (11.5-14.5); WBC 8.48 10*3/uL (4.50-10.00)
[2024-12-09 13:32] LABS: ALT 13 U/L (4-34); AST 17 U/L (14-36); African American GFR (CKD) >90 (>60 ml/min/1.73 sqM); Alkaline Phosphatase 84 U/L (38-126); Anion Gap 10 mmol/L; Blood Urea Nitrogen 7 mg/dL (7-17); Calcium 9.5 mg/dL (8.4-10.2); Carbon Dioxide 23 mmol/L (22-30); Chloride 103 mmol/L (98-107); Glucose 94 mg/dL (74-99); Non-African American GFR(CKD) >90 (>60 ml/min/1.73 sqM); Potassium 3.9 mmol/L (3.5-5.1); Sodium 136 mmol/L (137-145); Total Bilirubin 0.4 mg/dL (0.2-1.3); Total Protein 7.3 g/dL (6.3-8.2)
[2024-12-09] MEDS ORDERED: HEPARIN SODIUM 1,000 UN/ML (10ML VL) IV PRN (13:42)
[2024-12-09 13:52] LABS: INR 0.9 (<1.2); Prothrombin Time 10.2 sec (10.0-12.5)
[2024-12-09] MEDS ORDERED: MORPHINE SULFATE 4 MG/ML SYRINGE IV PRN (13:53)
[2024-12-09] MEDS ORDERED: HYDROcodone/APAP 5-325MG 1 EACH TAB PO PRN (13:53)
[2024-12-09] MEDS ORDERED: ACETAMINOPHEN TAB 325 MG TAB PO PRN (13:53)
[2024-12-09] MEDS ORDERED: NALOXONE 0.4 MG/ML 1 ML VIAL IV PRN (13:53)
[2024-12-09] MEDS ORDERED: ONDANSETRON 4 MG/2 ML VIAL IVP PRN (13:53)
[2024-12-09] MEDS ORDERED: HYDROmorphone 0.5 MG/0.5 ML SYRINGE IVP PRN (13:53)
[2024-12-09 14:02] LABS: Partial Thromboplastin Time 22.4 sec (22.0-30.0)
--- NOTE | 2024-12-09 14:40 | P.HPIM ---
History of Present Illness 45-year-old female was sent in from PCPs office because of pulmonary embolism. Patient presented to PCPs office with complaints of shortness of breath and no chest pain. Has been going on for several weeks for which because of which CT of the chest was obtained which showed pulm embolism in the right arterial vasculature. Patient BMI is 44.9 and was having vaginal bleed secondary to submucosal fibroids for few months because of which patient was started on oral contraceptive pills few weeks ago which are presently stopped and patient is still having vaginal bleeding at this time. Patient troponin is negative. 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 Patient denies any recent travel recent weight loss. Patient had a Doppler of bilateral lower extremities which is was negative for DVT REVIEW OF SYSTEMS: All other systems are negative except those mentioned in the HPI PHYSICAL EXAMINATION: GENERAL: The patient is alert and oriented x3, not in any acute distress. Well developed, well nourished. HEENT: Pupils are round and equally reacting to light. EOMI. No scleral icterus. No conjunctival pallor. Normocephalic, atraumatic. No pharyngeal erythema. No thyromegaly. CARDIOVASCULAR: S1 and S2 present. No murmurs, rubs, or gallops. PULMONARY: Chest is clear to auscultation, no wheezing or crackles. ABDOMEN: Soft, nontender, nondistended, normoactive bowel sounds. No palpable organomegaly. MUSCULOSKELETAL: No joint swelling or deformity. EXTREMITIES: No cyanosis, clubbing, or pedal edema. NEUROLOGICAL: Gross neurological examination did not reveal any focal deficits. SKIN: No rashes. Assessment and plan -DVT secondary to oral contraceptive pills, obesity and sitting for prolonged period of time. Will obtain echocardiogram. Patient was started on heparin with the patient has significant vaginal bleed this heparin need to be stopped. Patient may need IVC filter because of which I am consulting vascular surgery. - Vaginal bleed: Secondary to submucosal fibroids, cannot use oral contraceptive pills at this time because of PE, gynecology will be consulted. Patient may benefit from embolization --Hypertension - Hyperlipidemia - Type 2 diabetes mellitus for which patient can be resumed on appropriate home medications DVT prophylaxis: IV heparin Past Medical History Past Medical History: GERD/Reflux Additional Past Medical History / Comment(s): HIATAL HERNIA History of Any Multi-Drug Resistant Organisms: None Reported Past Surgical History: Section, Cholecystectomy Additional Past Surgical History / Comment(s): LIPOMA REMOVED LUQ (08/13/16), robert fundiplication 09/16 Past Anesthesia/Blood Transfusion Reactions: No Reported Reaction Past Psychological History: Depression Smoking Status: Never smoker Past Alcohol Use History: Occasional Past Drug Use History: Marijuana - Past Family History Mother Family Medical History: No Reported History Medications and Allergies Home Medications Medication Instructions Recorded Confirmed Type Atorvastatin [Lipitor] 10 mg PO DIRECTED 12/09/24 12/09/24 History Semaglutide [Wegovy] 0.25 mg SQ DIRECTED 12/09/24 12/09/24 History amLODIPine 10 mg PO DAILY 12/09/24 12/09/24 History hydroCHLOROthiazide [Hydrodiuril] 25 mg PO DAILY 12/09/24 12/09/24 History Allergies Allergy/AdvReac Type Severity Reaction Status Date / Time No Known Allergies Allergy Verified 12/09/24 14:18 Physical Exam Vitals: Vital Signs Temp Pulse Resp BP Pulse Ox 12/09/24 12:18 98.5 F 91 17 167/107 97 Intake and Output 12/08/24 12/09/24 12/09/24 22:59 06:59 14:59 Other: Weight 133.81 kg Results CBC & Chem 7: 12/09/24 13:05 12/09/24 13:05 Labs: Abnormal Lab Results - Last 24 Hours (Table) 12/09/24 12/09/24 Range/Units 13:05 13:05 RBC 3.58 L (4.10-5.20) 10*6/uL Hgb 10.5 L (12.0-15.0) g/dL Hct 31.4 L (37.2-46.3) % MPV 8.8 L (9.5-12.2) fL Sodium 136 L (137-145) mmol/L
[2024-12-09] MEDS: HEPARIN SODIUM 1,000 UN/ML (10ML VL) IV ONE (14:45)
[2024-12-09] MEDS: HEPARIN SOD,PORK IN 0.45% NACL 25,000 UNIT in 0.45% NACL 1 250ML.BAG IV SCH (14:46)
--- NOTE | 2024-12-09 15:25 | P.GSCN ---
History of Present Illness Consult date: 12/09/24 Reason for Consult: Assess for IVC filter Requesting physician: Juan Al History of present illness: This is a pleasant 44-year-old -Greek female who presented to the emergency department directed by her physician for pulmonary embolism. Patient apparently has been having shortness of breath over the last couple weeks. Patient is on control, her DAIRY FEED MIXING OPERATOR recently changed her control seco ndary to heavier vaginal bleeding. She just recently underwent transvaginal ultrasound and was told that she has uterine fibroids which is likely the cause of her vaginal bleeding. CT angiogram reported filling defects in the right pulmonary vasculature consistent with acute pulmonary embolism. Patient is currently undergoing echocardiogram. She did undergo venous duplex today as an outpatient as well and that was negative for deep vein thrombosis bilaterally. She denies any previous history of pulmonary embolism or DVT. No recent traveling no recent surgery. 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 States that she is not a very active person. Currently on IV heparin drip. Vascular surgery was consulted to assess for possible need for IVC filter placement secondary to vaginal bleeding. Patient's hemoglobin stable 10.5. Oxygen saturation 100% on room air. Patient does not appear to be in any kind of distress. Denies any chest pain. Review of Systems A 14 point review systems was completed all pertinent positives and negatives as stated in the HPI. Past Medical History Past Medical History: GERD/Reflux Additional Past Medical History / Comment(s): HIATAL HERNIA History of Any Multi-Drug Resistant Organisms: None Reported Past Surgical History: Section, Cholecystectomy Additional Past Surgical History / Comment(s): LIPOMA REMOVED LUQ (08/13/16), robert fundiplication 09/16 Past Anesthesia/Blood Transfusion Reactions: No Reported Reaction Past Psychological History: Depression Smoking Status: Never smoker Past Alcohol Use History: Occasional Past Drug Use History: Marijuana - Past Family History Mother Family Medical History: No Reported History Medications and Allergies Home Medications Medication Instructions Recorded Confirmed Type Atorvastatin [Lipitor] 10 mg PO DIRECTED 12/09/24 12/09/24 History Semaglutide [Wegovy] 0.25 mg SQ DIRECTED 12/09/24 12/09/24 History amLODIPine 10 mg PO DAILY 12/09/24 12/09/24 History hydroCHLOROthiazide [Hydrodiuril] 25 mg PO DAILY 12/09/24 12/09/24 History Allergies Allergy/AdvReac Type Severity Reaction Status Date / Time No Known Allergies Allergy Verified 12/09/24 14:18 Surgical - Exam Vital Signs Temp Pulse Resp BP Pulse Ox 98.5 F 91 17 167/107 97 12/09/24 12:18 12/09/24 12:18 12/09/24 12:18 12/09/24 12:18 12/09/24 12:18 General appearance: The patient is alert, oriented, appears in no acute distress. Obese. HET: Head is normocephalic and atraumatic. Pupils are equal and reactive. Neck: Supple. Heart: Regular. Lungs: Equal expansion, normal respiratory effort. Abdomen: Soft, nontender, nondistended. Extremities: Normal skin color and turgor. Neurological: No focal deficits. Strength and sensation are grossly intact. Results - Labs 12/09/24 13:05 12/09/24 13:05 Abnormal Lab Results - Last 24 Hours (Table) 12/09/24 12/09/24 Range/Units 13:05 13:05 RBC 3.58 L (4.10-5.20) 10*6/uL Hgb 10.5 L (12.0-15.0) g/dL Hct 31.4 L (37.2-46.3) % MPV 8.8 L (9.5-12.2) fL Sodium 136 L (137-145) mmol/L Diabetes panel 12/09/24 Range/Units 13:05 Sodium 136 L (137-145) mmol/L Potassium 3.9 (3.5-5.1) mmol/L Chloride 103 (98-107) mmol/L Carbon Dioxide 23 (22-30) mmol/L BUN 7 (7-17) mg/dL Creatinine 0.61 (0.52-1.04) mg/dL Glucose 94 (74-99) mg/dL Calcium 9.5 (8.4-10.2) mg/dL AST 17 (14-36) U/L ALT 13 (4-34) U/L Alkaline Phosphatase 84 (38-126) U/L Total Protein 7.3 (6.3-8.2) g/dL Albumin 4.0 (3.5-5.0) g/dL Calcium panel 12/09/24 Range/Units 13:05 Calcium 9.5 (8.4-10.2) mg/dL Albumin 4.0 (3.5-5.0) g/dL Pituitary panel 12/09/24 Range/Units 13:05 Sodium 136 L (137-145) mmol/L Potassium 3.9 (3.5-5.1) mmol/L Chloride 103 (98-107) mmol/L Carbon Dioxide 23 (22-30) mmol/L BUN 7 (7-17) mg/dL Creatinine 0.61 (0.52-1.04) mg/dL Glucose 94 (74-99) mg/dL Calcium 9.5 (8.4-10.2) mg/dL Adrenal panel 12/09/24 Range/Units 13:05 Sodium 136 L (137-145) mmol/L Potassium 3.9 (3.5-5.1) mmol/L Chloride 103 (98-107) mmol/L Carbon Dioxide 23 (22-30) mmol/L BUN 7 (7-17) mg/dL Creatinine 0.61 (0.52-1.04) mg/dL Glucose 94 (74-99) mg/dL Calcium 9.5 (8.4-10.2) mg/dL Total Bilirubin 0.4 (0.2-1.3) mg/dL AST 17 (14-36) U/L ALT 13 (4-34) U/L Alkaline Phosphatase 84 (38-126) U/L Total Protein 7.3 (6.3-8.2) g/dL Albumin 4.0 (3.5-5.0) g/dL Assessment and Plan Assessment: 1. Acute right pulmonary embolism 2. On oral anticoagulation secondary to menorrhagia 3. Menorrhagia likely secondary to uterine fibroids Plan: Patient currently on IV heparin drip. There is no contraindication at this time to anticoagulation.. Patient has no evidence of lower extremity DVT. There is no indication for IVC filter at this time. Cardiology consulted for pulmonary embolism. Recommend discontinuing oral anticoagulation. Consider DAIRY FEED MIXING OPERATOR consul tation for vaginal bleeding/uterine fibroids. Rest of medical management per primary medical team. Thank you for this consultation. The impression and plan of care has been dictated as directed. Dr. Russell I performed a history and examination of this patient, discussed the same with the dictator. I agree with the dictator's note ,documented as a scribe. Any additional findings or plans will be noted.
--- NOTE | 2024-12-09 19:48 | CA ---
Transthoracic Echo Report Name: Enzo Mendieta Age: 44 Gender: F : 1980 Exam Date: 12/09/2024 15:03 Exam Location: [facility] Ht (in): 68 Wt (lb): 295 Ordering Physician: Ruchi Crandall Attending/Referring Phys: Family Services Specialist Moon Mathews RDCS Procedure CPT: Indications: PE, eval for heart strain Cardiac Hx: Technical Quality: Good Contrast 1: Total Dose (mL): Contrast 2: Total Dose (mL): MEASUREMENTS (Male / Female) Normal Values 2D ECHO LV Diastolic Diameter PLAX 5.0 cm 4.2 - 5.9 / 3.9 - 5.3 cm LV Systolic Diameter PLAX 3.4 cm IVS Diastolic Thickness 1.3 cm 0.6 - 1.0 / 0.6 - 0.9 cm LVPW Diastolic Thickness 1.3 cm 0.6 - 1.0 / 0.6 - 0.9 cm LV Relative Wall Thickness 0.5 RV Internal Dim ED PLAX 3.9 cm LA Systolic Diameter LX 3.7 cm 3.0 - 4.0 / 2.7 - 3.8 cm LV Diastolic Volume MOD 4C 103.1 cm??? LV Systolic Volume MOD 4C 57.8 cm??? LV Ejection Fraction MOD 4C 44.0 % LV Cardiac Index MOD 4C 1271.8 cm???/min???m??? LV Diastolic Length 4C 8.9 cm LV Systolic Length 4C 7.6 cm LV Diastolic Volume MOD 2C 86.4 cm??? LV Systolic Volume MOD 2C 45.2 cm??? LV Ejection Fraction MOD 2C 47.7 % LV Cardiac Index MOD 2C 1156.8 cm???/min???m??? LV Diastolic Length 2C 8.6 cm LV Systolic Length 2C 7.2 cm M-MODE Aortic Root Diameter MM 3.2 cm DOPPLER AV Peak Velocity 154.0 cm/s AV Peak Gradient 9.5 mmHg Mitral E Point Velocity 91.3 cm/s Mitral A Point Velocity 119.5 cm/s Mitral E to A Ratio 0.8 MV Deceleration Time 141.6 ms MV E' Velocity 6.3 cm/s Mitral E to MV E' Ratio 14.5 TR Peak Velocity 227.4 cm/s TR Peak Gradient 20.7 mmHg Right Ventricular Systolic Press 30.7 mmHg FINDINGS Left Ventricle Left ventricular ejection fraction is estimated at 40-45 %. Left ventricular cavity size normal. Mildly increased septal wall thickness. Mildly increased posterior wall thickness. Mildly reduced global left ventricular systolic function. Right Ventricle Severe right ventricular dilatation. Right ventricular systolic pressure within normal limits. Right Atrium Normal right atrial size. No right atrial thrombus or mass seen. Left Atrium Normal left atrial size. No left atrial thrombus or mass present. Mitral Valve Mitral valve thickened. Mild to moderate mitral regurgitation. No evidence for mitral valve prolapse. No mitral stenosis. Aortic Valve Trileaflet aortic valve. Thickened aortic valve without stenosis. Tricuspid Valve Structurally normal tricuspid valve. Mild tricuspid regurgitation. Pulmonic Valve Pulmonic valve not well visualized. Trace pulmonic regurgitation. Pericardium No pericardial effusion. Aorta Normal size aortic root and proximal ascending aorta. CONCLUSIONS Mildly impaired LV function with EF between 40 to 45% Mild to moderate mitral regurgitation Previewed by: Dr. Tuan Crow MD (Electronically Signed) Final Date: 09 December 2024 19:47
[2024-12-10 03:11] LABS: Basophils # (A) 0.08 10*3/uL (0.00-0.10); Basophils % (A) 1.1 %; Eosinophils # (A) 0.25 10*3/uL (0.04-0.35); Eosinophils % (A) 3.6 %; HCT 29.4 % (37.2-46.3); HGB 9.4 g/dL (12.0-15.0); Lymphocytes % (A) 36.9 %; MCH 28.4 pg (27.0-32.0); MCV 88.8 fL (80.0-97.0); Mean Platelet Volume 8.5 fL (9.5-12.2); Monocytes # (A) 0.37 10*3/uL (0.20-1.00); Monocytes % (A) 5.3 %; Neutrophils # (A) 3.72 10*3/uL (1.80-7.70); Neutrophils % (A) 52.8 %; Platelet Count 344 10*3/uL (140-440); RBC 3.31 10*6/uL (4.10-5.20); RDW 14.6 % (11.5-14.5); WBC 7.04 10*3/uL (4.50-10.00)
[2024-12-10 04:21] LABS: African American GFR (CKD) >90 (>60 ml/min/1.73 sqM); Anion Gap 8 mmol/L; Blood Urea Nitrogen 8 mg/dL (7-17); Calcium 9.3 mg/dL (8.4-10.2); Carbon Dioxide 27 mmol/L (22-30); Chloride 100 mmol/L (98-107); Glucose 95 mg/dL (74-99); Non-African American GFR(CKD) >90 (>60 ml/min/1.73 sqM); Potassium 3.5 mmol/L (3.5-5.1); Sodium 135 mmol/L (137-145)
[2024-12-10] MEDS: hydroCHLOROthiazide 25 MG TAB PO SCH (09:19)
[2024-12-10] MEDS: amLODIPine 10 MG TAB PO SCH (09:19)
[2024-12-10] MEDS: ATORVASTATIN 10 MG TAB PO SCH (09:19)
[2024-12-10] MEDS: PANTOPRAZOLE 40 MG/10 ML VIAL IV SCH (09:20)
--- NOTE | 2024-12-10 12:55 | P.CRDCN ---
History of Present Illness History of present illness: HISTORY OF PRESENT ILLNESS: This is a 44-year-old female with a past medical history significant for hypertension, hyperlipidemia, and obesity. Patient does not follow with a sales promotion manager. We have been asked to see the patient in consultation for pulmonary embolism. Patient examined at the bedside in the emergency room. Patient states last week she started having discomfort in her calf. She came to the emergency room and was told that she had a strain and was discharged home. She states that she continued to have discomfort in her leg along with shortness of breath. She went to see her PCP and had labs drawn. Patient was found to have elevated D-dimer. She underwent CTA on 12/09/2024 revealing evidence of filling defects in the right pulmonary arterial vascular compatible with acute pulmonary embolism. Patient was started on IV heparin. Patient denies any known history of PE/DVT. Patient does report that she has been on control for many years. She states that she changed doctors recently and her control was switched in August. She states that she has been having heavy vaginal bleeding for the past few months as well. Patient also reports over the past few months she has been having some chest discomfort that will randomly come on that is sharp in nature. She believes this is due to her hiatal hernia. Patient also reports a history of hypertension and hyperlipidemia. She states that she was diagnosed with both of these conditions about a year ago. She states that she had her blood pressures under good control and thought she did not have to take her blood pressure medications anymore. She states that she has not been checking her blood pressure at home. She states that she just started taking her blood pressure medications again yesterday. She is a non- smoker. She reports alcohol use 2-3 times a month. She does report daily marijuana use. DIAGNOSTICS: - EKG reveals sinus mechanism with T wave inversions inferiorly. - Laboratory data: WBC 7.04. Hemoglobin 9.4. Platelet count 344. Sodium 135. Potassium 3.5. BUN 8. Creatinine 0.68. Troponin negative x 1. - Current home cardiac medications include Lipitor 10 mg daily, hydrochlorothiazide 25 mg daily, and amlodipine 10 mg daily - Echocardiogram completed this admission reveals ejection fraction 40 to 45%, severe right ventricular dilation, RVSP within normal limits, mild to moderate mitral regurgitation - Cardiac catheterization history: Patient denies REVIEW OF SYSTEMS: At the time of my exam: CONSTITUTIONAL: Denies fever or chills. HEENT: Denies blurred vision, vision changes, or eye pain. Denies hemoptysis CARDIOVASCULAR: Denies chest pain. Denies orthopnea. Denies PND. Denies palpitations RESPIRATORY: Denies shortness of breath. GASTROINTESTINAL: Denies abdominal pain. Denies nausea or vomiting. HEMATOLOGIC: Denies bleeding disorders. GENITOURINARY: Denies any blood in urine. SKIN: Denies pruitis. Denies rash. PHYSICAL EXAM: VITAL SIGNS: Reviewed. GENERAL: Well-developed in no acute distress. HEENT: Head is normocephalic. Pupils are equal, round. Sclerae anicteric. Mucous membranes of the mouth are moist. Neck supple. No JVD or thyromegaly LUNGS: Respirations even and unlabored. Lungs essentially clear to auscultation bilaterally. HEART: Regular rate and rhythm. S1 and S2 heard. ABDOMEN: Soft. Nondistended. Nontender. EXTREMITIES: Normal range of motion. No clubbing or cyanosis. Peripheral pulses intact. No lower extremity edema. Positive right Homans sign. NEUROLOGIC: Awake and alert. Oriented x 3. ASSESSMENT: Right-sided pulmonary embolism Hypertension, uncontrolled Hyperlipidemia Morbid obesity: BMI 45 History of heavy vaginal bleeding, x 2 to 3 months Cardiomyopathy, 40 to 45%, ischemic versus nonischemic, may be secondary to uncontrolled hypertension Right ventricular dilation, may be secondary to suspected sleep apnea Daily marijuana use PLAN: Discontinue IV heparin. Begin Eliquis per PE protocol. No indication for EKOS at this time. Discontinue amlodipine Begin losartan 50 mg daily and metoprolol succinate 25 mg daily Continue to monitor blood pressure. Reinforced importance of medication comp liance Recommend evaluation for obstructive sleep apnea. Patient states she has this scheduled to be done in December 2024 Further recommendations pending patient course Nurse practitioner note has been reviewed by physician. Signing provider agrees with the documented findings, assessment, and plan of care documented by TURKEY EGG GATHERER as a scribe. Past Medical History Past Medical History: GERD/Reflux Additional Past Medical History / Comment(s): HIATAL HERNIA History of Any Multi-Drug Resistant Organisms: None Reported Past Surgical History: Section, Cholecystectomy Additional Past Surgical History / Comment(s): LIPOMA REMOVED LUQ (08/13/16), robert fundiplication 09/16 Past Anesthesia/Blood Transfusion Reactions: No Reported Reaction Past Psychological History: Depression Smoking Status: Never smoker Past Alcohol Use History: Occasional Past Drug Use History: Marijuana - Past Family History Mother Family Medical History: No Reported History Medications and Allergies Home Medications Medication Instructions Recorded Confirmed Type Atorvastatin [Lipitor] 10 mg PO DIRECTED 12/09/24 12/09/24 History Semaglutide [Wegovy] 0.25 mg SQ DIRECTED 12/09/24 12/09/24 History amLODIPine 10 mg PO DAILY 12/09/24 12/09/24 History hydroCHLOROthiazide [Hydrodiuril] 25 mg PO DAILY 12/09/24 12/09/24 History Allergies Allergy/AdvReac Type Severity Reaction Status Date / Time No Known Allergies Allergy Verified 12/09/24 14:18 Physical Exam Vitals: Vital Signs Temp Pulse Pulse Resp BP BP Pulse Ox 12/10/24 04:00 98.5 F 96 17 130/93 100 12/10/24 02:00 17 12/10/24 00:15 98 16 150/96 100 12/10/24 00:00 98.4 F 74 18 150/96 98 12/09/24 22:55 69 16 100 12/09/24 19:32 88 18 100 12/09/24 16:28 82 18 158/94 100 12/09/24 15:56 70 18 166/103 100 12/09/24 14:51 71 18 176/119 100 12/09/24 12:18 98.5 F 91 17 167/107 97 Intake and Output 12/09/24 12/10/24 12/10/24 22:59 06:59 14:59 Intake Total 138.474 106.406 Balance 138.474 106.406 Intake: Intake, IV Titration 138.474 106.406 Amount Heparin Sod,Pork in 0.45% 138.474 106.406 NaCl 25,000 unit In 0.45 % NaCl 1 250ml.bag @ 17.2 UNITS/KG/HR 23.015 mls/ hr IV .[id number] [facility] Rx#: [id number] Other: # Voids 1 2 Weight 135.6 kg Results 12/10/24 03:00 12/10/24 03:00 Cardiac Enzymes 12/09/24 12/09/24 Range/Units 13:05 13:05 AST 17 (14-36) U/L Troponin I <0.012 (0.000-0.034) ng/mL Coagulation 12/09/24 12/09/24 12/10/24 Range/Units 13:05 19:27 03:00 PT 10.2 (10.0-12.5) sec APTT 22.4 128.6 H* 82.0 H (22.0-30.0) sec CBC 12/09/24 12/10/24 Range/Units 13:05 03:00 WBC 8.48 7.04 (4.50-10.00) 10*3/uL RBC 3.58 L 3.31 L (4.10-5.20) 10*6/uL Hgb 10.5 L 9.4 L (12.0-15.0) g/dL Hct 31.4 L 29.4 L (37.2-46.3) % Plt Count 373 344 (140-440) 10*3/uL Comprehensive Metabolic Panel 12/09/24 12/10/24 Range/Units 13:05 03:00 Sodium 136 L 135 L (137-145) mmol/L Potassium 3.9 3.5 (3.5-5.1) mmol/L Chloride 103 100 (98-107) mmol/L Carbon Dioxide 23 27 (22-30) mmol/L BUN 7 8 (7-17) mg/dL Creatinine 0.61 0.68 (0.52-1.04) mg/dL Glucose 94 95 (74-99) mg/dL Calcium 9.5 9.3 (8.4-10.2) mg/dL AST 17 (14-36) U/L ALT 13 (4-34) U/L Alkaline Phosphatase 84 (38-126) U/L Total Protein 7.3 (6.3-8.2) g/dL Albumin 4.0 (3.5-5.0) g/dL Current Medications Generic Name Dose Route Start Last Admin Trade Name Freq PRN Reason Stop Dose Admin Acetaminophen 650 mg 12/09/24 13:53 Acetaminophen Tab 325 Mg Tab PO Q6HR PRN Mild Pain or Fever > 100.5 Hydrocodone Bitart/Acetaminophen 1 each 12/09/24 13:53 Hydrocodone/Apap 5-325mg 1 Each Tab PO Q4HR PRN Moderate Pain (Scale 4 to 6) Amlodipine Besylate 10 mg 12/10/24 09:00 Amlodipine 10 Mg Tab PO DAILY [facility] Atorvastatin Calcium 10 mg 12/10/24 09:00 Atorvastatin 10 Mg Tab PO DAILY [facility] Heparin Sodium (Porcine) 0 unit 12/09/24 13:42 Heparin Sodium 1,000 Un/Ml (10ml Vl) IV PER PROTOCOL PRN Low PTT Protocol Hydrochlorothiazide 25 mg 12/10/24 09:00 Hydrochlorothiazide 25 Mg Tab PO DAILY [facility] Hydromorphone HCl 0.5 mg 12/09/24 13:53 Hydromorphone 0.5 Mg/0.5 Ml Syringe IVP Q3HR PRN Moderate Pain (Scale 4 to 6) Heparin Sodium/Sodium Chloride 250 mls @ 23.015 mls/hr 12/09/24 13:45 12/10/24 04:01 25,000 unit/ Sodium Chloride IV 12.2 units/kg/hr .[id number] [facility] 16.325 mls/hr Titration Protocol 17.2 UNITS/KG/HR Morphine Sulfate 4 mg 12/09/24 13:53 Morphine Sulfate 4 Mg/Ml Syringe IV Q4HR PRN Severe Pain (Scale 7 to 10) Naloxone HCl 0.2 mg 12/09/24 13:53 Naloxone 0.4 Mg/Ml 1 Ml Vial IV Q2M PRN Opioid Reversal Ondansetron HCl 4 mg 12/09/24 13:53 Ondansetron 4 Mg/2 Ml Vial IVP Q8HR PRN Nausea And Vomiting Pantoprazole Sodium 40 mg 12/10/24 09:00 Pantoprazole 40 Mg/10 Ml Vial IV DAILY [facility] Intake and Output 12/09/24 12/10/24 12/10/24 22:59 06:59 14:59 Intake Total 138.474 106.406 Balance 138.474 106.406 Intake: Intake, IV Titration 138.474 106.406 Amount Heparin Sod,Pork in 0.45% 138.474 106.406 NaCl 25,000 unit In 0.45 % NaCl 1 250ml.bag @ 17.2 UNITS/KG/HR 23.015 mls/ hr IV .[id number] [facility] Rx#: [id number] Other: # Voids 1 2 Weight 135.6 kg 12/10/24 03:00 12/10/24 03:00
[2024-12-10] MEDS: LOSARTAN 50 MG TAB PO SCH (13:38)
[2024-12-10] MEDS: METOPROLOL SUCCINATE (ER) 25 MG TAB.ER.24H PO SCH (13:39)
[2024-12-10] MEDS: Apixaban Initiation Dose--VTE 5 MG TAB PO SCH (13:39)
[2024-12-10 14:00] LABS: VLDL Calculation 13.24 mg/dL (5.00-40.00)
--- NOTE | 2024-12-10 14:41 | P.PN ---
Subjective 45-year-old female was sent in from PCPs office because of pulmonary embolism. Patient presented to PCPs office with complaints of shortness of breath and no chest pain. Has been going on for several weeks for which because of which CT of the chest was obtained which showed pulm embolism in the right arterial vasculature. Patient BMI is 44.9 and was having vaginal bleed secondary to submucosal fibroids for few months because of which patient was started on oral contraceptive pills few weeks ago which are presently stopped and patient is still having vaginal bleeding at this time. Patient troponin is negative. 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 Patient denies any recent travel recent weight loss. Patient had a Doppler of bilateral lower extremities which is was negative for DVT 12/10/2024 Patient was evaluated by vascular surgery not recommending any IV filter placement patient is vaginal bleeding improved but still having some bleed. Awaiting evaluation by QUARTER INSPECTOR. Patient was transition from heparin to Eliquis. REVIEW OF SYSTEMS: All other systems are negative except those mentioned in the HPI PHYSICAL EXAMINATION: GENERAL: The patient is alert and oriented x3, not in any acute distress. Well developed, well nourished. HEENT: Pupils are round and equally reacting to light. EOMI. No scleral icterus. No conjunctival pallor. Normocephalic, atraumatic. No pharyngeal erythema. No thyromegaly. CARDIOVASCULAR: S1 and S2 present. No murmurs, rubs, or gallops. PULMONARY: Chest is clear to auscultation, no wheezing or crackles. ABDOMEN: Soft, nontender, nondistended, normoactive bowel sounds. No palpable organomegaly. MUSCULOSKELETAL: No joint swelling or deformity. EXTREMITIES: No cyanosis, clubbing, or pedal edema. NEUROLOGICAL: Gross neurological examination did not reveal any focal deficits. SKIN: No rashes. Assessment and plan -DVT secondary to oral contraceptive pills, obesity and sitting for prolonged period of time. Will obtain echocardiogram. Vascular surgery evaluated the patient, patient is transition to Eliquis vaginal bleeding improved. - Vaginal bleed: Secondary to submucosal fibroids, cannot use oral contraceptive pills at this time because of PE, gynecology will be consulted. Patient may benefit from embolization --Hypertension - Hyperlipidemia - Type 2 diabetes mellitus for which patient can be resumed on appropriate home medications DVT prophylaxis: IV heparin Objective - Vital Signs Vital signs: Vital Signs Temp 98.3 F 12/10/24 09:13 Pulse 78 12/10/24 12:31 Resp 18 12/10/24 12:31 BP 133/98 12/10/24 12:31 Pulse Ox 100 12/10/24 12:31 FiO2 Intake & Output 12/09/24 12/10/24 12/10/24 18:59 06:59 18:59 Intake Total 244.880 104.752 Balance 244.880 104.752 Weight 133.81 kg 135.6 kg 135.6 kg Intake: Intake, IV Titration 244.880 104.752 Amount Heparin Sod,Pork in 0.45% 244.880 104.752 NaCl 25,000 unit In 0.45 % NaCl 1 250ml.bag @ 17.2 UNITS/KG/HR 23.015 mls/ hr IV .[id number] [facility] Rx#: [id number] Other: # Voids 2 - Labs CBC & Chem 7: 12/10/24 03:00 12/10/24 03:00 Labs: Abnormal Lab Results - Last 24 Hours (Table) 12/09/24 12/10/24 12/10/24 Range/Units 19:27 03:00 03:00 RBC 3.31 L (4.10-5.20) 10*6/uL Hgb 9.4 L (12.0-15.0) g/dL Hct 29.4 L (37.2-46.3) % MPV 8.5 L (9.5-12.2) fL APTT 128.6 H* (22.0-30.0) sec Sodium 135 L (137-145) mmol/L Cholesterol (0.00-200.00) mg/dL LDL Cholesterol, Calc (0.0-131.0) mg/dL 12/10/24 12/10/24 12/10/24 Range/Units 03:00 03:00 09:44 RBC (4.10-5.20) 10*6/uL Hgb (12.0-15.0) g/dL Hct (37.2-46.3) % MPV (9.5-12.2) fL APTT 82.0 H 82.3 H (22.0-30.0) sec Sodium (137-145) mmol/L Cholesterol 202.00 H (0.00-200.00) mg/dL LDL Cholesterol, Calc 137.0 H (0.0-131.0) mg/dL
--- NOTE | 2024-12-10 17:08 | P.OBCN ---
History of Present Illness Consult date: 12/10/24 Reason for consult: other (DUB) Chief complaint: Vaginal bleeding with known uterine fibroid History of present illness: 44-year-old 2 para 1-0-1-1 that presented to the emergency department approximately 1 day ago from primary care office for concerns for pulmonary embolism. Patient was started on IV anticoagulation and is being transition to p.o. Eliquis. Patient states her last menstrual period was 322 and she has been bleeding since, patient states today is her latest day yet of the month. Typically menstrual cycles have been regular with a moderate bleed lasting 5 days. Patient states 3 to 4 months ago they became slightly irregular where she started having menstrual cycles every 14 days with a 5-day bleed. Patient does have an SEISMOGRAPH COMPUTER which ordered an ultrasound done approximately 2 days ago. Ultrasound revealing a slightly enlarged uterus at 11 cm, 4 cm submucosal fibroid was appreciated. SEISMOGRAPH COMPUTER history #1 section, 41/7 weeks denies gestational diabetes or hypertension concerns with the #2 Ab Menses regular until approximately 3 to 4 months ago and they became q. 14 days with a moderate flow lasting 5 days. Patient states November 19 she began a period and has been bleeding off and on since. Review of Systems Constitutional: Denies chills, Denies fatigue, Denies fever Genitourinary: Reports abnormal vaginal bleeding, Denies Menstruation: Reports menses variable Past Medical History Past Medical History: Chest Pain / Angina, GERD/Reflux, Hyperlipidemia, Hypertension Additional Past Medical History / Comment(s): HIATAL HERNIA, was taking control prior to having PE (stopped taking 12/07/24) History of Any Multi-Drug Resistant Organisms: None Reported Past Surgical History: Section, Cholecystectomy Additional Past Surgical History / Comment(s): LIPOMA REMOVED LUQ (08/13/16), robert fundiplication 09/16 Past Anesthesia/Blood Transfusion Reactions: No Reported Reaction Smoking Status: Never smoker - Past Family History Mother Family Medical History: No Reported History Medications and Allergies Home Medications Medication Instructions Recorded Confirmed Type Atorvastatin [Lipitor] 10 mg PO DIRECTED 12/09/24 12/09/24 History Semaglutide [Wegovy] 0.25 mg SQ DIRECTED 12/09/24 12/09/24 History amLODIPine 10 mg PO DAILY 12/09/24 12/09/24 History hydroCHLOROthiazide [Hydrodiuril] 25 mg PO DAILY 12/09/24 12/09/24 History Allergies Allergy/AdvReac Type Severity Reaction Status Date / Time Pork/Porcine Containing AdvReac Unknown Verified 12/10/24 13:03 Products Childhood [Pork] Exam Osteopathic Statement: *. No significant issues noted on an osteopathic structural exam other than those noted in the History and Physical/Consult. Vital Signs Temp Pulse Pulse Resp BP BP Pulse Ox 12/10/24 16:51 87 18 97 12/10/24 12:31 78 18 133/98 100 12/10/24 10:39 72 18 142/80 100 12/10/24 09:13 98.3 F 84 18 146/91 99 12/10/24 04:00 98.5 F 96 17 130/93 100 12/10/24 02:00 17 12/10/24 00:15 98 16 150/96 100 12/10/24 00:00 98.4 F 74 18 150/96 98 12/09/24 22:55 69 16 100 12/09/24 19:32 88 18 100 Intake and Output 12/10/24 12/10/24 12/10/24 06:59 14:59 22:59 Intake Total 106.406 165.490 Balance 106.406 165.490 Intake: Intake, IV Titration 106.406 165.490 Amount Heparin Sod,Pork in 0.45% 106.406 165.490 NaCl 25,000 unit In 0.45 % NaCl 1 250ml.bag @ 17.2 UNITS/KG/HR 23.015 mls/ hr IV .[id number] [facility] Rx#: [id number] Other: # Voids 2 Weight 135.6 kg 135.6 kg Targeted physical exam is performed this date in general is well-nourished well- developed -[place] female in no acute distress, patient is resting comfortably in bed. Breathing is nonlabored Results Result Diagrams: 12/10/24 03:00 12/10/24 03:00 Abnormal Lab Results - Last 24 Hours (Table) 12/09/24 12/10/24 12/10/24 Range/Units 19:27 03:00 03:00 RBC 3.31 L (4.10-5.20) 10*6/uL Hgb 9.4 L (12.0-15.0) g/dL Hct 29.4 L (37.2-46.3) % MPV 8.5 L (9.5-12.2) fL APTT 128.6 H* (22.0-30.0) sec Sodium 135 L (137-145) mmol/L Cholesterol (0.00-200.00) mg/dL LDL Cholesterol, Calc (0.0-131.0) mg/dL 12/10/24 12/10/24 12/10/24 Range/Units 03:00 03:00 09:44 RBC (4.10-5.20) 10*6/uL Hgb (12.0-15.0) g/dL Hct (37.2-46.3) % MPV (9.5-12.2) fL APTT 82.0 H 82.3 H (22.0-30.0) sec Sodium (137-145) mmol/L Cholesterol 202.00 H (0.00-200.00) mg/dL LDL Cholesterol, Calc 137.0 H (0.0-131.0) mg/dL Assessment and Plan (1) Dysfunctional uterine bleeding Current Visit: Yes Status: Acute Code(s): N93.8 - OTHER SPECIFIED ABNORMAL UTERINE AND VAGINAL BLEEDING SNOMED Code(s): 89458051288326 (2) Uterine fibroid Current Visit: Yes Status: Acute Code(s): D25.9 - LEIOMYOMA OF UTERUS, UNSPECIFIED SNOMED Code(s): 57784086 (3) Acute pulmonary embolism Current Visit: Yes Status: Acute Code(s): I26.99 - OTHER PULMONARY EMBOLISM WITHOUT ACUTE COR PULMONALE SNOMED Code(s): 094865093 Plan: 44-year-old admitted for pulmonary embolism. Prior ultrasound revealing uterine fibroid, dysfunctional bleeding since 11/19 patient states her bleeding is lightest it has been all month. Prior ultrasound from a couple days ago at [facility] reviewed with patient, uterus slightly enlarged at 11 cm with 4 cm uterine fibroid appreciated. Patient states she did talk to her SEISMOGRAPH COMPUTER about options, endometrial ablation, hysterectomy. Options were discussed and multiple questions were answered. Patient states she is feels comfortable with discharge home from a TRUCK SERVICE MANAGER standpoint
--- NOTE | 2024-12-11 12:12 | P.PN ---
Subjective 45-year-old female was sent in from PCPs office because of pulmonary embolism. Patient presented to PCPs office with complaints of shortness of breath and no chest pain. Has been going on for several weeks for which because of which CT of the chest was obtained which showed pulm embolism in the right arterial vasculature. Patient BMI is 44.9 and was having vaginal bleed secondary to submucosal fibroids for few months because of which patient was started on oral contraceptive pills few weeks ago which are presently stopped and patient is still having vaginal bleeding at this time. Patient troponin is negative. 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 Patient denies any recent travel recent weight loss. Patient had a Doppler of bilateral lower extremities which is was negative for DVT 12/10/2024 Patient was evaluated by vascular surgery not recommending any IV filter placement patient is vaginal bleeding improved but still having some bleed. Awaiting evaluation by HOME VISIT FIELD CARE MANAGER. Patient was transition from heparin to Eliquis. 12/11/2024 Patient was eval by cardiology echocardiogram was done which is showing decreased EF of around 40 to 45% and significant RV dilatation because of which there is concern for hemodynamic instability for that reason cardiology recommended monitoring her overnight and possibly repeat echocardiogram tomorrow. Patient was eval by HOME VISIT FIELD CARE MANAGER yesterday patient bleeding significantly improved she was cleared from their perspective. REVIEW OF SYSTEMS: All other systems are negative except those mentioned in the HPI PHYSICAL EXAMINATION: GENERAL: The patient is alert and oriented x3, not in any acute distress. Well developed, well nourished. HEENT: Pupils are round and equally reacting to light. EOMI. No scleral icterus. No conjunctival pallor. Normocephalic, atraumatic. No pharyngeal erythema. No thyromegaly. CARDIOVASCULAR: S1 and S2 present. No murmurs, rubs, or gallops. PULMONARY: Chest is clear to auscultation, no wheezing or crackles. ABDOMEN: Soft, nontender, nondistended, normoactive bowel sounds. No palpable organomegaly. MUSCULOSKELETAL: No joint swelling or deformity. EXTREMITIES: No cyanosis, clubbing, or pedal edema. NEUROLOGICAL: Gross neurological examination did not reveal any focal deficits. SKIN: No rashes. Assessment and plan -DVT secondary to oral contraceptive pills, obesity and sitting for prolonged period of time. Echocardiogram findings as mentioned above. Patient has a dilated RV and decreased ejection fraction. Probably secondary to pulmonary embolism vascular surgery evaluated the patient, [facility] - Vaginal bleed: Secondary to submucosal fibroids, cannot use oral contraceptive pills at this time because of PE, gynecology will be consulted. Patient may benefit from embolization --Hypertension - Hyperlipidemia - Type 2 diabetes mellitus for which patient can be resumed on appropriate home medications DVT prophylaxis: IV heparin Objective - Vital Signs Vital signs: Vital Signs Temp 97.8 F 12/11/24 03:41 Pulse 88 12/11/24 08:50 Resp 16 12/11/24 08:50 BP 121/71 12/11/24 08:50 Pulse Ox 100 12/11/24 08:50 FiO2 Intake & Output 12/10/24 12/11/24 12/11/24 18:59 06:59 18:59 Intake Total 165.490 Balance 165.490 Weight 135.6 kg Intake: Intake, IV Titration 165.490 Amount Heparin Sod,Pork in 0.45% 165.490 NaCl 25,000 unit In 0.45 % NaCl 1 250ml.bag @ 17.2 UNITS/KG/HR 23.015 mls/ hr IV .[id number] [facility] Rx#: [id number] Other: # Voids 2 - Labs CBC & Chem 7: 12/10/24 03:00 12/10/24 03:00 Labs: Abnormal Lab Results - Last 24 Hours (Table) 12/10/24 Range/Units 03:00 Cholesterol 202.00 H (0.00-200.00) mg/dL LDL Cholesterol, Calc 137.0 H (0.0-131.0) mg/dL
--- NOTE | 2024-12-11 12:38 | P.PN ---
Subjective HISTORY OF PRESENT ILLNESS: This is a 44-year-old female with a past medical history significant for hypertension, hyperlipidemia, and obesity. Patient does not follow with a herpetology teacher. We have been asked to see the patient in consultation for pulmonary embolism. Patient examined at the bedside in the emergency room. Patient states last week she started having discomfort in her calf. She came to the emergency room and was told that she had a strain and was discharged home. She states that she continued to have discomfort in her leg along with shortness of breath. She went to see her PCP and had labs drawn. Patient was found to salvador ve elevated D-dimer. She underwent CTA on 12/09/2024 revealing evidence of filling defects in the right pulmonary arterial vascular compatible with acute pulmonary embolism. Patient was started on IV heparin. Patient denies any known history of PE/DVT. Patient does report that she has been on control for many years. She states that she changed doctors recently and her control was switched in August. She states that she has been having heavy vaginal bleeding for the past few months as well. Patient also reports over the past few months she has been having some chest discomfort that will randomly come on that is sharp in nature. She believes this is due to her hiatal hernia. Patient also reports a history of hypertension and hyperlipidemia. She states that she was diagnosed with both of these conditions about a year ago. She states that she had her blood pressures under good control and thought she did not have to take her blood pressure medications anymore. She states that she has not been checking her blood pressure at home. She states that she just started taking her blood pressure medications again yesterday. She is a non- smoker. She reports alcohol use 2-3 times a month. She does report daily marijuana use. DIAGNOSTICS: - EKG reveals sinus mechanism with T wave inversions inferiorly. - Laboratory data: WBC 7.04. Hemoglobin 9.4. Platelet count 344. Sodium 135. Potassium 3.5. BUN 8. Creatinine 0.68. Troponin negative x 1. - Current home cardiac medications include Lipitor 10 mg daily, hydrochlorothiazide 25 mg daily, and amlodipine 10 mg daily - Echocardiogram completed this admission reveals ejection fraction 40 to 45%, severe right ventricular dilation, RVSP within normal limits, mild to moderate mitral regurgitation - Cardiac catheterization history: Patient denies 12/11/2024 Patient examined this morning at the bedside. Patient currently denies chest pain or pressure. She denies shortness of breath. Blood pressure is improved today. PHYSICAL EXAM: VITAL SIGNS: Reviewed. GENERAL: Well-developed in no acute distress. HEENT: Head is normocephalic. Pupils are equal, round. Sclerae anicteric. Mucous membranes of the mouth are moist. Neck supple. No JVD or thyromegaly LUNGS: Respirations even and unlabored. Lungs essentially clear to auscultation bilaterally. HEART: Regular rate and rhythm. S1 and S2 heard. ABDOMEN: Soft. Nondistended. Nontender. EXTREMITIES: Normal range of motion. No clubbing or cyanosis. Peripheral pulses intact. No lower extremity edema. Positive right Homans sign. NEUROLOGIC: Awake and alert. Oriented x 3. ASSESSMENT: Right-sided pulmonary embolism Hypertension, uncontrolled Hyperlipidemia Morbid obesity: BMI 45 History of heavy vaginal bleeding, x 2 to 3 months Cardiomyopathy, 40 to 45%, ischemic versus nonischemic, may be secondary to uncontrolled hypertension Right ventricular dilation, may be secondary to suspected sleep apnea Daily marijuana use PLAN: Amlodipine discontinued yesterday Continue Eliquis. No indication for EKOS at this time. Increase Lipitor to 20 mg daily Continue to monitor blood pressure. Reinforced importance of medication compliance Recommend evaluation for obstructive sleep apnea. Patient states she has this scheduled to be done in December 2024 Increase activity as tolerated Continue to monitor patient for additional 24 hours. Anticipate discharge home tomorrow Will repeat echocardiogram on an outpatient basis Further recommendations pending patient course Nurse practitioner note has been reviewed by physician. Signing provider agrees with the documented findings, assessment, and plan of care documented by BROWNFIELD PROGRAM COORDINATOR as a scribe. Objective - Vital Signs Vital signs: Vital Signs Temp 97.8 F 12/11/24 03:41 Pulse 88 12/11/24 08:50 Resp 16 12/11/24 08:50 BP 121/71 12/11/24 08:50 Pulse Ox 100 12/11/24 08:50 FiO2 Intake & Output 12/10/24 12/11/24 12/11/24 18:59 06:59 18:59 Intake Total 165.490 Balance 165.490 Weight 135.6 kg Intake: Intake, IV Titration 165.490 Amount Heparin Sod,Pork in 0.45% 165.490 NaCl 25,000 unit In 0.45 % NaCl 1 250ml.bag @ 17.2 UNITS/KG/HR 23.015 mls/ hr IV .[id number] [facility] Rx#: [id number] Other: # Voids 2 - Labs CBC & Chem 7: 12/10/24 03:00 12/10/24 03:00 Labs: Abnormal Lab Results - Last 24 Hours (Table) 12/10/24 Range/Units 03:00 Cholesterol 202.00 H (0.00-200.00) mg/dL LDL Cholesterol, Calc 137.0 H (0.0-131.0) mg/dL
[2024-12-12 09:18] VITALS: TEMP 98.3
[2024-12-12] MEDS: ATORVASTATIN 20 MG TAB PO SCH (09:27)
--- NOTE | 2024-12-12 10:56 | P.PN ---
Subjective Progress Note Date: 12/12/24 Principal diagnosis: Pulmonary embolism Patient is seen and examined today as a follow-up. Patient admitted with right pulmonary embolism. She was started on a heparin drip and transitioned over the weekend to Eliquis. She states that vaginal bleeding has actually decreased s veronika being hospitalized. She was seen by gynecology who recommends outpatient follow-up. Last hemoglobin stable at 9.4. She denies any shortness of breath. Oxygen level is been 100% room air. Objective - Vital Signs Vital signs: Vital Signs Temp 98.3 F 12/12/24 09:15 Pulse 93 12/12/24 09:15 Resp 16 12/12/24 09:15 BP 119/88 12/12/24 09:15 Pulse Ox 100 12/12/24 09:15 FiO2 Intake & Output 12/11/24 12/12/24 12/12/24 18:59 06:59 18:59 Intake Total 480 480 240 Balance 480 480 240 Weight 126.8 kg Intake: Oral 480 480 240 Other: Voiding Method Toilet Toilet # Voids 1 2 - Exam General appearance: The patient is alert, oriented, appears in no acute distress. HET: Head is normocephalic and atraumatic. Pupils are equal and reactive. Neck: Supple. Heart: Regular. Lungs: Equal expansion, normal respiratory effort. Abdomen: Soft, nontender, nondistended. Extremities: Normal skin color and turgor. Neurological: Alert and oriented. - Labs CBC & Chem 7: 12/10/24 03:00 12/10/24 03:00 Assessment and Plan Assessment: 1. Acute right pulmonary embolism 2. On oral anticoagulation secondary to menorrhagia 3. Menorrhagia likely secondary to uterine fibroids Plan: 1. Continue anticoagulation as ordered 2. No indication for IVC filter 3. Rest of medical management per primary medical team Thank you for this consultation, patient is cleared by vascular surgery for discharge The impression and plan of care has been dictated as directed. Dr. Russell I performed a history and examination of this patient, discussed the same with the dictator. I agree with the dictator's note ,documented as a scribe. Any additional findings or plans will be noted.
[2024-12-12] MEDS: FERROUS SULFATE 325 MG TAB PO SCH (12:05)
[2024-12-12 12:07] VITALS: BP 134/91; PULSE 78; RESP 18
--- NOTE | 2024-12-12 12:08 | P.DS ---
Providers Date of admission: 12/09/24 16:47 Attending physician: Juan Al Consults: 12/09/24 13:53 Consult Physician Urgent Consulting Provider: Tuan Crow Consult Reason/Comments: Right sided PE Do you want consulting provider notified?: Yes 12/09/24 14:00 Consult Physician Urgent Consulting Provider: Henny Gaston Consult Reason/Comments: Vaginal Bleeding Do you want consulting provider notified?: Yes 12/09/24 14:34 Consult Physician Routine Consulting Provider: Gordon Mckinley Consult Reason/Comments: Assess for IVC filter placement Do you want consulting provider notified?: Yes Primary care physician: Wandy Valiente MD Hospital Course: 45-year-old female admitted for pulmonary embolism which is believed to be secondary to oral contraceptive pills, BMI and her sedentary lifestyle secondary to her job. Patient does not have any right ventricular strain, patient was started on Eliquis. Echocardiogram did show dilated right ventricle and congestive heart failure EF of around 40 to 45% unknown whether it is ischemic or nonischemic cardiomyopathy patient was not in acute exacerbation. Patient was subsequently started on losartan and metoprolol because of cardiomyopathy and amlodipine was discontinued patient is on hydrochlorothiazide which is being continued at this time. Bilateral lower extremities are negative for DVT. Patient was evaluated by vascular surgery for possible IVC filter placement as she was having vaginal bleeding secondary to submucosal fibroids although her vaginal bleeding improved and vascular surgery did not recommend any IVC filter placement. PHYSICAL EXAMINATION: GENERAL: The patient is alert and oriented x3, not in any acute distress. Well developed, well nourished. HEENT: Pupils are round and equally reacting to light. EOMI. No scleral icterus. No conjunctival pallor. Normocephalic, atraumatic. No pharyngeal erythema. No thyromegaly. CARDIOVASCULAR: S1 and S2 present. No murmurs, rubs, or gallops. PULMONARY: Chest is clear to auscultation, no wheezing or crackles. ABDOMEN: Soft, nontender, nondistended, normoactive bowel sounds. No palpable organomegaly. MUSCULOSKELETAL: No joint swelling or deformity. EXTREMITIES: No cyanosis, clubbing, or pedal edema. NEUROLOGICAL: Gross neurological examination did not reveal any focal deficits. SKIN: No rashes. -Pulmonary embolism without any right ventricular strain - Congestive heart failure chronic systolic function unknown whether it is ischemic or nonischemic without any acute exacerbation - Hypertension - Hyperlipidemia - Vaginal bleeding secondary to submucosal fibroids - Type 2 diabetes mellitus Plan - Discharge Summary New Discharge Prescriptions: New Metoprolol Succinate (ER) [Toprol XL] 25 mg PO DAILY #60 tab Losartan [Cozaar] 50 mg PO DAILY #30 tab Apixaban [Eliquis Starter Pack (for VTE)] 5 - 10 mg PO DIRECTED 30 Days #1 each Continue hydroCHLOROthiazide [Hydrodiuril] 25 mg PO DAILY Atorvastatin [Lipitor] 10 mg PO DIRECTED Semaglutide [Wegovy] 0.25 mg SQ DIRECTED Discontinued amLODIPine 10 mg PO DAILY Discharge Medication List Atorvastatin [Lipitor] 10 mg PO DIRECTED 12/09/24 [History] Semaglutide [Wegovy] 0.25 mg SQ DIRECTED 12/09/24 [History] hydroCHLOROthiazide [Hydrodiuril] 25 mg PO DAILY 12/09/24 [History] Apixaban [Eliquis Starter Pack (for VTE)] 5 - 10 mg PO DIRECTED 30 Days #1 each 12/12/24 [Rx] Losartan [Cozaar] 50 mg PO DAILY #30 tab 12/12/24 [Rx] Metoprolol Succinate (ER) [Toprol XL] 25 mg PO DAILY #60 tab 12/12/24 [Rx] Follow up Appointment(s)/Referral(s): Wandy Valiente MD [Primary Care Provider] - 3 Days Discharge Disposition: HOME SELF-CARE
--- NOTE | 2024-12-12 13:07 | P.PN ---
Subjective HISTORY OF PRESENT ILLNESS: This is a 44-year-old female with a past medical history significant for hypertension, hyperlipidemia, and obesity. Patient does not follow with a green meat packer. We have been asked to see the patient in consultation for pulmonary embolism. Patient examined at the bedside in the emergency room. Patient states last week she started having discomfort in her calf. She came to the emergency room and was told that she had a strain and was discharged home. She states that she continued to have discomfort in her leg along with shortness of breath. She went to see her PCP and had labs drawn. Patient was found to salvador ve elevated D-dimer. She underwent CTA on 12/09/2024 revealing evidence of filling defects in the right pulmonary arterial vascular compatible with acute pulmonary embolism. Patient was started on IV heparin. Patient denies any known history of PE/DVT. Patient does report that she has been on control for many years. She states that she changed doctors recently and her control was switched in August. She states that she has been having heavy vaginal bleeding for the past few months as well. Patient also reports over the past few months she has been having some chest discomfort that will randomly come on that is sharp in nature. She believes this is due to her hiatal hernia. Patient also reports a history of hypertension and hyperlipidemia. She states that she was diagnosed with both of these conditions about a year ago. She states that she had her blood pressures under good control and thought she did not have to take her blood pressure medications anymore. She states that she has not been checking her blood pressure at home. She states that she just started taking her blood pressure medications again yesterday. She is a non- smoker. She reports alcohol use 2-3 times a month. She does report daily marijuana use. DIAGNOSTICS: - EKG reveals sinus mechanism with T wave inversions inferiorly. - Laboratory data: WBC 7.04. Hemoglobin 9.4. Platelet count 344. Sodium 135. Potassium 3.5. BUN 8. Creatinine 0.68. Troponin negative x 1. - Current home cardiac medications include Lipitor 10 mg daily, hydrochlorothiazide 25 mg daily, and amlodipine 10 mg daily - Echocardiogram completed this admission reveals ejection fraction 40 to 45%, severe right ventricular dilation, RVSP within normal limits, mild to moderate mitral regurgitation - Cardiac catheterization history: Patient denies 12/11/2024 Patient examined this morning at the bedside. Patient currently denies chest pain or pressure. She denies shortness of breath. Blood pressure is improved today. 12/12/2024 Patient examined this morning at the bedside. Patient currently denies chest pain or pressure. She denies shortness of breath. Vital signs are stable. PHYSICAL EXAM: VITAL SIGNS: Reviewed. GENERAL: Well-developed in no acute distress. HEENT: Head is normocephalic. Pupils are equal, round. Sclerae anicteric. Mucous membranes of the mouth are moist. Neck supple. No JVD or thyromegaly LUNGS: Respirations even and unlabored. Lungs essentially clear to auscultation bilaterally. HEART: Regular rate and rhythm. S1 and S2 heard. ABDOMEN: Soft. Nondistended. Nontender. EXTREMITIES: Normal range of motion. No clubbing or cyanosis. Peripheral pulses intact. No lower extremity edema. Positive right Homans sign. NEUROLOGIC: Awake and alert. Oriented x 3. ASSESSMENT: Right-sided pulmonary embolism Hypertension, uncontrolled Hyperlipidemia Morbid obesity: BMI 45 History of heavy vaginal bleeding, x 2 to 3 months Cardiomyopathy, 40 to 45%, ischemic versus nonischemic, may be secondary to uncontrolled hypertension Right ventricular dilation, may be secondary to suspected sleep apnea Daily marijuana use PLAN: Continue current cardiac medications Will repeat echocardiogram on an outpatient basis Check iron studies Add ferrous sulfate 325 mg 3 times a day Stable for discharge home today from a cardiac standpoint Nurse practitioner note has been reviewed by physician. Signing provider agrees with the documented findings, assessment, and plan of care documented by OCCUPATIONAL THERAPY ASSISTANT as a scribe. Objective - Vital Signs Vital signs: Vital Signs Temp 98.3 F 12/12/24 09:15 Pulse 93 12/12/24 09:15 Resp 16 12/12/24 09:15 BP 119/88 12/12/24 09:15 Pulse Ox 100 12/12/24 09:15 FiO2 Intake & Output 12/11/24 12/12/24 12/12/24 18:59 06:59 18:59 Intake Total 480 480 240 Balance 480 480 240 Weight 126.8 kg Intake: Oral 480 480 240 Other: Voiding Method Toilet Toilet # Voids 1 2 - Labs CBC & Chem 7: 12/10/24 03:00 12/10/24 03:00
[2024-12-12 16:49] LABS: % Iron Saturation 5.34 (12.00-45.00); Ferritin 7.4 ng/mL (10.0-291.0)
== END 2024-12-12 12:38 | disposition home or self-care (01) ==
LOC: EC 11:55 → 3SCARD 16:47
PROVIDERS: ADMIT Internal Medicine; ATTEND Internal Medicine
DX: I26.99 Other pulmonary embolism without acute cor pulmonale (principal); D25.0 Submucous leiomyoma of uterus; K21.9 Gastro-esophageal reflux disease without esophagitis; F32.A Depression, unspecified; E78.5 Hyperlipidemia, unspecified; I11.0 Hypertensive heart disease with heart failure; I50.22 Chronic systolic (congestive) heart failure; I42.9 Cardiomyopathy, unspecified; E11.9 Type 2 diabetes mellitus without complications; F12.90 Cannabis use, unspecified, uncomplicated; E66.01 Morbid (severe) obesity due to excess calories; Z68.42 Body mass index [BMI] 45.0-49.9, adult; Z86.718 Personal history of other venous thrombosis and embolism; Z79.01 Long term (current) use of anticoagulants; Z79.3 Long term (current) use of hormonal contraceptives; Z79.899 Other long term (current) drug therapy
CPT/HCPCS: 96376 ×2; 96366 ×2; 96365; 96375; 99285; 36415; 93306; 80061; 80053; 80048; 82728; 83540; 83550; 84484; 85025 ×2; 85610; 85730 ×2; 84703; 83036; G0378 ×4; J1644 ×3; J2470 ×2

== ENCOUNTER → 2024-12-09 | Outpatient (CLI) | payer BC ==
--- NOTE | 2024-12-09 10:07 | US ---
EXAMINATION TYPE: US venous doppler duplex LE BI DATE OF EXAM: 12/09/2024 9:49 AM COMPARISON: NONE CLINICAL INDICATION: Female, 44 years old with history of [id number]; d-dimer 6500, no h/o dvt TECHNIQUE: The lower extremity deep venous system is examined utilizing real time linear array sonog saul with graded compression, color doppler sonography, and spectral doppler. SIDE PERFORMED: Bilateral FINDINGS: VESSELS IMAGED: Common Femoral Vein Deep Femoral Vein Greater Saphenous Vein * Femoral Vein Popliteal Vein Small Saphenous Vein * Proximal Calf Veins (* superficial vessels) Right Leg: Negative for DVT, Color Doppler imaging shows patency of the vessels. Spectral waveforms are within normal limits. Left Leg: Negative for DVT, Color Doppler imaging shows patency of the vessels. Spectral waveforms a re within normal limits. IMPRESSION: 1. Bilateral lower extremity ultrasound negative for deep venous thrombosis. [facility], , 12/09/2024 10:05 AM
--- NOTE | 2024-12-09 12:30 | CT ---
EXAMINATION TYPE: CT angio chest DATE OF EXAM: 12/09/2024 10:43 AM COMPARISON: None CLINICAL INDICATION: Female, 44 years old with history of I82.90 acute embolism; Acute embolism TECHNIQUE/CONTRAST: CTA scan of the thorax is performed without and with IV Contrast, patient injected with 100 ml mL of Isovue 370, MIP images are created and reviewed these are created on a separate workstation.. CT DLP: 564 mGycm, Automated exposure control for dose reduction was used. FINDINGS: Lungs/Pleura: No evidence of focal consolidation, pleural effusion or pneumothorax. Airway: Large airways are patent. Heart: Size within normal limits. No significant coronary artery calcifications. Vasculature: Limited evaluation due to bolus timing, There are multiple filling defects identified h owever series 6 image 71 in the right middle and right lower lunge pulmonary arterial vasculature als o on series 6 image 93. Mediastinum: No gross evidence of adenopathy. Musculoskeletal: No acute osseous abnormalities Soft Tissues/lymph nodes: Unremarkable. Lower neck: No significant findings. Upper Abdomen: Partially visualized simple appearing 6.6 cm right renal cyst. Post surgical changes g astroesophageal junction. IMPRESSION: Limited exam however there is evidence of filling defects in the right pulmonary arterial vascular co mpatible with of acute pulmonary emboli. Findings communicated to ordering provider's office 12/09/2024 11:07 AM by Department of radiology Joe Tran. Follow up recommendations for incidental pulmonary nodules, if there are any, are per [employer] or [employer] [place] [employer]. [email or web address]://radiopaedia.org/articles/[email or web address]?lang=us [facility], , 12/09/2024 12:28 PM
== END | disposition home or self-care (01) ==
LOC: RADUSWWP 08:58
PROVIDERS: ATTEND Family Medicine
DX: I82.90 Acute embolism and thrombosis of unspecified vein (principal)
CPT/HCPCS: 93970; 71275; Q9967

== ENCOUNTER → 2025-01-04 | Outpatient (CLI) | payer BC ==
--- NOTE | 2025-01-05 07:46 | MM ---
Reason for Exam: Screening (asymptomatic). Last mammogram was performed 1 year(s) and 7 month(s) ago. Patient History: Menarche at age 15. First Full-Term at age 33. Late child-bearing (after 30). Patient has history of breast feeding. Patient used Hormonal Contraceptives for 25 years. Maternal aunt had breast cancer. Paternal aunt had breast cancer. Risk Values: Martha 5 year model risk: 0.6%. NCI Lifetime model risk: 7.3%. Prior Study Comparison: 06/25/2023 Bilateral MG 3D screening mammo w/cad, [facility]. Tissue Density: The breasts are heterogeneously dense, which may obscure small masses. Findings: Analyzed By CAD. Right breast: There is no suspicious group of microcalcifications or new suspicious mass. Left breast: There is no suspicious group of microcalcifications or new suspicious mass. Overall Assessment: Negative, BI-RAD 1 Management: Screening Mammogram of both breasts in [address] [facility] will attempt to contact patient to return for supplemental views and ultrasound if indicated. Patient should continue monthly self-breast exams. A clinical breast exam by your physician is recommended on an annual basis. This exam should not preclude additional follow-up of suspicious palpable abnormalities. Note on Martha scores and lifetime risk: 1. A Martha score greater than 3% is considered moderate risk. If this is the case, consider specialist referral to assess eligibility for a risk reducing agent. 2. If overall lifetime risk for the development of breast cancer is 20% or higher, the patient may qualify for future screening with alternating mammogram and breast MRI. [facility], , 01/05/2025 7:43 AM. Electronically signed and approved by: Carroll Tran DO
== END | disposition home or self-care (01) ==
LOC: RADMAMWWP 16:17
PROVIDERS: ATTEND Obstetrics & Gynecology
DX: Z12.31 Encounter for screening mammogram for malignant neoplasm of breast (principal); R92.333 Mammographic heterogeneous density, bilateral breasts; Z80.3 Family history of malignant neoplasm of breast; Z92.0 Personal history of contraception
CPT/HCPCS: 77063; 77067